=== PATIENT | female | born 1970 | race Caucasian/White ===

== ENCOUNTER 2019-10-31 12:43 | Outpatient (CLI) | payer OTHER, SELFPAY ==
--- NOTE | 2019-10-31 | ECHO_ITS ---
Patient Info Name: Haritha Ríos Age: 49 years : 1970 Gender: Female Ht: 64 in Wt: 218 lbs BSA: 2.16 m2 HR: 87 bpm BP: 116 / 67 mmHg Heart Rhythm: Sinus Rhythm Technical Quality: Good Exam Date: 10/31/2019 1:08 PM Exam Location: [facility] Pulmonary Patient Status: Outpatient Admit Date: 10/31/2019 Staff Ordering Physician: CiprianoFlo MD [employer] Machine Helper: Zafar Avelar RDCS Attending Provider: Paul, lFo Koehler MD Referring Physician: Cipriano VALLE; Exam Type: CA echo doppler color flow Study Info Indications I25.10 - Atherosclerotic heart disease of [place] coronary artery without angina pectoris Complete two-dimensional, color flow and Doppler transthoracic echocardiogram is performed. Strain analysis performed. History/Risk Factors CAD w/ bypass in 2008 and 2014. Summary 1. Left ventricular systolic function is normal, estimated at 55-60%. 2. There is mildly increased left ventricular wall thickness. 3. The left ventricular diastolic function is normal. 4. Global longitudinal strain is mildly elevated at -14 %. 5. Right atrial chamber dimension is mildly enlarged. 6. There is no aortic valve stenosis. 7. There is mild aortic valve regurgitation. 8. There is trace mitral valve regurgitation. 9. There is trace tricuspid valve regurgitation. 10. Unable to estimate PA systolic pressure due to poor spectral resolution of tricuspid regurgitant jet velocity. Left Ventricle Left ventricular chamber dimension is normal. Left ventricular systolic function is normal, estimated at 55-60%. There is mildly increased left ventricular wall thickness. The left ventricular diastolic function is normal. Global longitudinal strain is mildly elevated at -14 %. Right Ventricle Right ventricular chamber dimension is normal. Right ventricular systolic function is normal. Left Atria Left atrial chamber dimension is normal. Right Atria Right atrial chamber dimension is mildly enlarged. Aortic Valve The aortic valve is probable trileaflet. There is no aortic valve stenosis. There is mild aortic valve regurgitation. Pulmonic Valve The pulmonic valve is not well visualized. Mitral Valve The mitral valve has normal leaflets. There is trace mitral valve regurgitation. Tricuspid Valve The tricuspid valve leaflets are normal. There is trace tricuspid valve regurgitation. Unable to estimate PA systolic pressure due to poor spectral resolution of tricuspid regurgitant jet velocity. Pericardium/Pleural The pericardium appears epicardial fat pad. There is no pericardial effusion. Inferior Vena Cava Normal inferior vena cava with >50% collapse upon inspiration consistent with normal right atrial pressure, 5 mmHg. Aorta The aortic root size at the sinus of Valsalva is normal. Left Ventricular Outflow Tract Name Value Normal LVOT 2D LVOT Diameter 1.9 cm LVOT Doppler LVOT Peak Gradient 4 mmHg LVOT Mean Gradient 2 mmHg LVOT VTI 20 cm LVOT VTI/AV VTI Ratio
== END 2019-10-31 12:44 | disposition home or self-care (01) ==
LOC: ANHCARD 12:46
PROVIDERS: Visit Provider Specialist
DX: I25.10 Atherosclerotic heart disease of native coronary artery without angina pectoris (principal); I08.3 Combined rheumatic disorders of mitral, aortic and tricuspid valves
CPT/HCPCS: 93306

== ENCOUNTER 2021-07-06 11:19 | Observation (INO) | payer OTHER, SELFPAY ==
[2021-07-06] VITALS (36 sets, daily range): BP systolic 73–132; BP diastolic 38–76; PULSE 68–103; RESP 14–21; TEMP 35.7–36.7; O2SAT 89–100; BMI 36.8
--- NOTE | ~2021-07-06 | XR_ITS ---
XR chest 2V 07/06/2021 12:17 Indication: Midline chest pain Procedure: AP and lateral views of the chest Comparison: No prior studies for comparison. Findings: Status post median sternotomy for CABG. There is a thoracic aortic stent. Heart size is nor mal. No focal air space disease, pulmonary edema, pleural effusion or suspected pneumothorax. Impression: 1: No acute cardiopulmonary disease. Reviewed, dictated and finalized at location B. Impression: 1: No acute cardiopulmonary disease.
--- NOTE | ~2021-07-06 | XR_ITS ---
EXAMINATION: XR ankle LT min 3V DATE: 07/06/2021 12:18 INDICATION: Last left ankle pain and swelling with abrasion 2 weeks prior TECHNIQUE: Anteroposterior, oblique, mortise, and lateral views of the left ankle were obtained. COMPARISON: None. FINDINGS: Alignment is normal. No fracture. Joint spaces are well maintained. No ankle joint effusion. Mild s oft tissue swelling overlying the cephalad aspect of the lateral malleolus. No cortical erosions or p eriosteal reaction to suggest osteomyelitis. No soft tissue gas or radiopaque foreign bodies. IMPRESSION: 1. No left ankle joint effusion or osseous abnormality. Reviewed, dictated and finalized at location A.
--- NOTE | ~2021-07-06 | CT_ITS ---
EXAMINATION: CTA chest PE protocol DATE: 07/06/2021 16:15 INDICATION: Midline chest pain TECHNIQUE: Computed tomography (CT) pulmonary angiogram of the chest was performed with 100 mL Omnipa que-350 intravenous contrast. Additional 3D reconstructions utilizing coronal maximum intensity proje ction (MIP) were performed. Automated exposure control and iterative reconstruction technique were em ployed. The dose-length product was 800.80 mGy-cm. COMPARISON: None FINDINGS: Excellent contrast opacification of the pulmonary arteries. There is mild streak artifact from dense contrast in the superior vena cava and right atrium. Mild scattered respiratory motion artifact which does not significantly limit evaluation. No pulmonary embolism. Lungs are clear with no pneumonia, p ulmonary edema, pleural effusion or pneumothorax. Heart size is normal. No pericardial effusion. Post operative change of prior median sternotomy and coronary artery bypass grafting. The descending aorta is aneurysmal measuring up to 5.3 cm in maximal diameter at the level of the car fariba. There is intraluminal stenting of an aortic dissection of the descending thoracic aorta with the stent beginning at the aortic arch at level of the takeoff of the left subclavian artery and extendi ng distally to near the thoracic hiatus. The stent distally appears compressed by the false lumen of the dissection which continues distally below the level of the takeoff of the celiac axis which is s upplied via the true lumen. The majority of the cross-sectional diameter of the aorta which measures 3.2 x 3.0 cm at the level of the celiac axis is occupied by the false lumen. The false lumen demonstr ates heterogeneous attenuation which is greater than would be expected for chronic hematoma and sugge sts ongoing endoleak. The attenuation appears higher more caudally at the false lumen then more proxi suzi at the mid descending thoracic aorta suggesting this occurred more distally with retrograde monet ling of the false lumen. There are curvilinear regions of higher attenuation proximally within the fa lse lumen at the level of the proximal descending aorta which appear higher in attenuation than the c ontrast in the aorta suggesting this more likely represents calcification. There appears to be an add itional small dissection at the aortic root proximal to what appears be an additional separate endolu sangeeta stent of the ascending thoracic aorta which terminates before the takeoff of the innominate art konrad. There is an additional dissection flap within the innominate artery which appears to extend into the right common carotid artery. No pathologically enlarged thoracic lymphadenopathy. Diffuse hepati c steatosis. Mild thoracic spondylosis. IMPRESSION: 1. 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 It is unclear to what degree this is acute versus chronic and would recommend urg ent vascular surgery consultation and comparison with any prior outside imaging. 2. Separate short endoluminal stent of the ascending thoracic aorta with aortic dissection proximal t o the stent at the aortic root and more distally in the innominate artery extending into the left com mon carotid artery. 3. No pulmonary embolism or other acute pulmonary disease. Reviewed, dictated and finalized at location A. IMPRESSION: 1. Aneurysmal dilation of the descending thoracic aorta which measures up to 5. 3 cm diameter with endoluminal stent graft extending from the level of the left subclavian artery to t
--- NOTE | 2021-07-06 11:22 | ECG_ITS ---
Measurements Intervals [place] Rate: 102 P: 52 OH: 123 QRS: 8 QRSD: 89 T: 172 QT: 337 QTc: 440 Interpretive Statements SINUS TACHYCARDIA POSSIBLE LEFT ATRIAL ENLARGEMENT EARLY PRECORDIAL R/S TRANSITION LEFT VENTRICULAR HYPERTROPHY WITH ST-T CHANGE INFERIOR INFARCT, AGE INDETERMINATE ST-T WAVE ABNORMALITY IN ANTEROLAT/HIGH LAT LEADS- CONSIDER ISCHEMIA BASELINE ARTIFACT- II, III, AVR, AVF, V3-V6 ABNORMAL ECG Electronically Signed On 07-06-2021 13:08:20 CDT by Vidal Sanchez D.O.
--- NOTE | 2021-07-06 11:53 | ED.CHESTPAIN ---
HPI - Chest Pain General Chief Complaint: Chest Pain Stated Complaint: CP Time Seen by Provider: 07/06/21 11:20 History of Present Illness HPI narrative: Patient is a 51-year-old female who presents ER with left-sided chest pain. Ongoing for the last 1 week. Constant. No radiation. Patient cannot report aggravating or alleviating factors. Reports previously she had been at her boyfriend's house after leaving a senior care. It was a bad 2 weeks or so she just moved back into the senior care. She reports she had a fall on some stairs 2 weeks ago as well prior to going back to the senior care. Did not strike her head or lose consciousness but did suffer an abrasion to her left ankle and has pain in her ankle. She is able to ambulate. Denies fevers or chills or sweats. No runny nose or sore throat or productive cough. No pain with deep breath. No hemoptysis. Patient reports history of coronary disease and sees [facility]. Related Data Home Medications Medication Instructions Recorded Confirmed Adult Multivitamin Extra VitD3 1 tablet PO DAILY 07/06/21 atorvastatin 80 mg PO DAILY 07/06/21 cyclobenzaprine 10 mg PO DAILY 07/06/21 docusate sodium 100 mg PO BID 07/06/21 famotidine 20 mg PO DAILY 07/06/21 fludrocortisone 0.1 mg PO DAILY 07/06/21 furosemide [Lasix] 20 mg PO DIRECTED 07/06/21 isosorbide mononitrate 60 mg PO DAILY 07/06/21 loratadine 10 mg PO DAILY 07/06/21 metoprolol tartrate 6.25 mg PO DAILY 07/06/21 risperidone 0.5 mg PO BID 07/06/21 topiramate 50 mg PO DAILY 07/06/21 trazodone 100 mg PO DAILY 07/06/21 Allergies Allergy/AdvReac Type Severity Reaction Status Date / Time acetaminophen [From Percocet] Allergy Unknown Verified 07/06/21 11:58 morphine Allergy Unknown Verified 07/06/21 11:58 oxycodone [From Percocet] Allergy Unknown Verified 07/06/21 11:58 sumatriptan [From Imitrex] Allergy Unknown Verified 07/06/21 11:59 Review of Systems Review of Systems: All systems reviewed & are unremarkable except as noted in HPI and below Constitutional: Constitutional: Denies chills, Denies fever(s) and Denies weakness ENT: Denies nasal congestion and Denies sore throat Cardiovascular: Cardiovascular: Reports chest pain, Denies rapid heart rate and Denies radiating jaw, neck or arm pain Respiratory: Respiratory: Denies cough, Denies dyspnea and Denies wheezing Gastrointestinal: Gastrointestinal: Denies abdominal pain, Denies nausea and Denies vomiting Musculoskeletal: Musculoskeletal: Reports arthralgias and Reports joint swelling Integumentary/Breasts: Comments: left ankle abasion PMFSH Past Medical History Medical History (Updated 07/06/21 @ 19:17 by Mario Ortiz MD) Aortic dissection History of coronary artery disease Hyperlipidemia Hypertension Surgical History Surgical History (Updated 07/06/21 @ 16:31 by Mario Ortiz MD) 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 HEAD: Normocephalic, atraumatic. EYES: PERRL and EOMI. ENT: Mucous membranes moist. CHEST: Clear to auscultation. No respiratory distress. HEART: Regular rate and rhythm. Normal peripheral pulses. ABDOMEN: Soft, nontender, nondistended. EXTREMITIES: Normal range of motion. No edema. Abrasion tenderness of the left lateral ankle with normal range of motion SKIN: Warm, dry, no rash. NEURO: Alert and oriented x3. Course Course Emergency Course: Accepted for consultation by [facility] and accepted for admission by hospitalist service. Will give Lovenox and start Coumadin. Reevaluation(s) Reevaluation #1: Patient resting comfortably in room. Report
[2021-07-06 11:56] LABS: Basophils Absolute Auto 0.1 K/mm3 (0.0-0.1); Basophils Percent Auto 0.7 % (0.2-1.2); Eosinophils Absolute Auto 0.1 K/mm3 (0-0.3); Eosinophils Percent Auto 1.5 % (0-4.4); Hematocrit 48.8 % (37.0-47.0); Hemoglobin 15.4 g/dL (12.0-15.0); Immature Granulocyte Absolute 0.02 K/mm3 (0.00-0.031); Immature Granulocyte Percent A 0.2 % (0-0.5); Lymphocytes Absolute Auto 2.57 K/mm3 (0.9-3.2); Lymphocytes Percent Auto 29.7 % (18.3-44.2); Mean Corpuscular HGB Conc 31.6 g/dl (32-36); Mean Corpuscular Hemoglobin 28.6 pg (26-34); Mean Corpuscular Volume 90.7 fl (80-100); Mean Platelet Volume 10.4 fl (7.4-10.4); Monocytes Absolute Auto 0.8 K/mm3 (0.1-0.6); Monocytes Percent Auto 8.7 % (2.6-8.5); Neutrophils Absolute Auto 5.1 K/mm3 (1.3-6.7); Neutrophils Percent Auto 59.2 % (45.5-73.1); Platelet Count Result 239 k/mm3 (150-375); Red Blood Count 5.38 M/mm3 (4.2-5.4); Red Cell Distribution Width 16.9 % (11.5-14.5); White Blood Count 8.6 K/mm3 (4.5-10.0)
[2021-07-06 12:04] LABS: Anion Gap 12 mmol/L (8-16); Blood Urea Nitrogen 8 mg/dL (7-17); Calcium 9.7 mg/dL (8.4-10.2); Carbon Dioxide 22 mmol/L (22-30); Chloride 107 mmol/L (98-107); Estimated CRCL calculation 106 ml/min; Estimated Glomerular Filt Rate > 60; Glucose 123 mg/dL (65-110); Potassium 3.8 mmol/L (3.4-5.0); Sodium 141 mmol/L (137-145)
[2021-07-06 12:05] LABS: INR 0.9; Prothrombin Time 12.2 Seconds (11.1-14.7)
[2021-07-06 12:06] LABS: Partial Thromboplastin Time 24.5 SECONDS (22.3-36.8)
[2021-07-06 12:16] LABS: Troponin I 0.015 ng/mL (0.000-0.034)
[2021-07-06] MEDS: fentaNYL CITRATE INJ (*CRX) 100 MCG/2 ML VIAL 50 MCG IV PUSH (12:24)
[2021-07-06] MEDS: Please add drug allergy info to patient profile. 1 EACH XX (12:24)
[2021-07-06] MEDS: SODIUM CHLORIDE 0.9% IV 1,000 ML 999 ML IV CONT (13:08)
[2021-07-06 15:27] LABS: Troponin I 0.013 ng/mL (0.000-0.034)
[2021-07-06 18:03] LABS: Troponin I < 0.012 ng/mL (0.000-0.034)
[2021-07-06] MEDS: ENOXAPARIN 100 MG/ML SYRINGE 95 MG SUB-Q (18:21)
[2021-07-07] VITALS (8 sets, daily range): BP systolic 116–139; BP diastolic 56–72; PULSE 88–109; RESP 16–20; TEMP 36.4–36.8; O2SAT 94–100
--- NOTE | 2021-07-07 01:39 | PM.IMHP ---
H&P: HPI History of Present Illness Date/Time: 07/07/21 01:39 Chief Complaint: Chest pain Narrative: Patient is a 51-year-old female who presents to the ER with left-sided chest pain. This has been ongoing for the past few weeks. The pain has been constant. No radiation no aggravating or alleviating factors. Patient resides in a retirement. Patient reports shortness of breath on and off along with the chest pain. She denies any fever chills cough runny nose or sore throat. No hemoptysis he is she reports he has a history of extensive coronary artery disease and had bypass and stents in the past. 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 Her initial workup in the ER noted to be with negative troponin and unremarkable CBC and a BMP. Chest x-ray showed no acute cardiopulmonary disease. Chest CTA was done which showed Aneurysmal dilation of the descending thoracic aorta which measures up to 5.3 cm diameter with endoluminal stent graft extending from the level of the left subclavian artery to the descending thoracic aorta where it appears compressed by an aortic dissection with enlarged lying likely retrograde filling false lumen it is unclear to what degree this is acute versus chronic and would recommend urgent vascular surgery consultation and comparison with any prior outside imaging. Separate short endoluminal stent of the ascending thoracic aorta with aortic dissection proximal to the stent at the aortic root and more distally in the innominate artery extending into the left common at carotid artery. No pulmonary embolism or other acute pulmonary disease. EKG showed some ST-T changes in the dieter lateral leads. No prior EKG to compare. ED physician spoke with vascular surgeon at [facility] and reviewed the images. He reported that patient has a chronic aortic dissection that is stable from the previous imaging. He reported that she will always have retrograde filling defect however he recommended that she be anticoagulated with Coumadin given prior pre-existing coronary artery disease as well. It was felt patient did require transfer or any bit other intervention in a tertiary care center for the findings noted above. She has been given a dose of Lovenox as well as 324 mg of aspirin She currently reports that she does not have any chest pain and denies any shortness of breath. Review of Systems Review of Systems: - CONSTITUTIONAL: Denies weight loss, fever and chills. - HEENT: Denies changes in vision and hearing - RESPIRATORY: Reports SOB and denies cough. - CV: Denies palpitations and reports CP. - GI: Denies abdominal pain, nausea, vomiting and diarrhea. - : Denies dysuria and urinary frequency. - MSK: Denies myalgia and joint pain. - SKIN: Denies rash and pruritus. - NEUROLOGICAL: Denies headache and syncope. - PSYCHIATRIC: Denies recent changes in mood. Denies anxiety and depression. 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
--- NOTE | 2021-07-07 09:36 | PM.CNCAR ---
Assessment and Plan Additional Plan 51-year-old woman with chest pain prompting admission to the hospital last evening. Symptoms are atypical of and not suggestive of acute coronary syndrome. She has the above-mentioned history of coronary disease. She states the symptoms do not resemble her previous myocardial ischemia which she has not been experiencing since her bypass operation about 11 years ago. There is no evidence of acute coronary syndrome by troponin levels. ECG shows some diffuse nonspecific ST segment changes. We have no old EKGs and [facility]'s record for comparison. In addition to this she has unfortunately a history of a aortic dissection as well which was treated with thoracic aortic stenting at [facility]. She has extensive stent material visualized on x-ray and CT here at [facility]. Apparently the CT showed a small endoleak and some aneurysmal enlargement of the descending thoracic aorta distal to the stent material. Fortunately these images were reviewed remotely by the thoracic surgeons at [facility] last evening and the findings are stable. Since her symptoms are atypical, not suggestive of ischemia and her biomarkers are negative in the face of a week of ongoing pain I do not think we need to initiate an ischemia workup here at [facility]. We certainly would not consider bringing this patient for catheterization at [facility] given the extensive stenting of her thoracic aorta and previous bypass operations we have no records of any of this anatomy and this type of procedure would be beyond the scope of the capability of this hospital's medical lab scientist. I believe she can be [facility]. Follow-up with cardiology and thoracic surgery is chronically being performed at [facility]. Pratik Berry MD [facility] History of Present Illness History of Present Illness Consult date/time: 07/07/21 09:36 Consult reason: chest pain Reason For Visit: Chest pain Narrative: This is a 51-year-old lady I am seeing at the request of the hospitalist because of chest pain. The patient unfortunately has a very complex cardiovascular history and none of her previous care was delivered here at [facility]. Sadly she is a penitentiary resident at 51 years old because she says she has nowhere else to go. She usually is feeling relatively well as far as her heart is concerned. She said a couple of weeks ago she tried to leave the penitentiary and live with her boyfriend for a couple of weeks but that did not work out she was concerned that she was not receiving her medications appropriately while she was there so she went back to the [facility]itent[facility]. She says about a week ago she started to experience some chest pain that she describes she describes as a dull left precordial pain that was constant it really did not wax and wane had no other characteristics or quality did not radiate to any other location not associated with any shortness of breath diaphoresis and simply a nagging ongoing pain. For this reason apparently yesterday the decision was made by the [facility]entiary staff to send her to the hospital emergency room. She was evaluated in the emergency room and admitted Jose M. The pain has resolved she can not really tell me if she received any analgesics in the emergency room or for what reason but pain has completely resolved and she feels well this morning. Her electrocardiogram shows sinus rhythm with some nonspecific ST segment changes and her troponin levels are negative x3 sets. She has a history of coronary disease dating back to her late 30s she states when she was in her late 30s she had several hospitalizations in [facility] with chest pain and eventually was determined that she needed coronary bypass surgery. We again of course do not have any of those records at the time I dictate this note. She underwent coronary bypass surgery and did relatively well. She does not believe she has had any cardiac problems since her co
[2021-07-07] MEDS: ASPIRIN 81 MG ENTERIC TABLET PO (10:28)
[2021-07-07] MEDS: ISOSORBIDE MONONITRATE 60 MG TAB.ER.24H PO (10:28)
[2021-07-07] MEDS: FLUDROCORTISONE ACETATE 0.1 MG TABLET PO (10:28)
[2021-07-07] MEDS: CYANOCOBALAMIN 1,000 MCG TABLET 1000 MCG PO (10:29)
[2021-07-07] MEDS: risperiDONE 0.5 MG TABLET PO (10:29)
[2021-07-07] MEDS: TOPIRAMATE 25 MG TABLET 50 MG PO (10:29)
[2021-07-07] MEDS: CYCLOBENZAPRINE HCL 10 MG TABLET PO (10:29)
[2021-07-07] MEDS: MULTIVITAMINS THERAPEUTIC TAB (*BKC) 1 TABLET PO (10:29)
[2021-07-07] MEDS: POTASSIUM CHLORIDE 20 MEQ TABLET.ER PO (10:29)
[2021-07-07] MEDS: LORATADINE 10 MG TABLET PO (10:29)
[2021-07-07] MEDS: ATORVASTATIN 40 MG TABLET 80 MG PO (10:29)
[2021-07-07] MEDS: ENOXAPARIN 100 MG/ML SYRINGE 95 MG SUB-Q (10:29)
[2021-07-07] MEDS: FAMOTIDINE 20 MG TABLET PO (10:29)
[2021-07-07] MEDS: METOPROLOL TARTRATE 6.25 MG TABLET PO (10:30)
--- NOTE | 2021-07-07 10:47 | PM.DS ---
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: Code(s): Z98.890 - Other specified postprocedural states; Z86.79 - Personal history of other diseases of the circulatory system Status: Inactive (4) History of coronary artery bypass graft: Code(s): Z95.1 - Presence of aortocoronary bypass graft Status: Inactive (5) History of percutaneous coronary intervention: Code(s): Z98.61 - Coronary angioplasty status Status: Inactive (6) Hypertension: Code(s): I10 - Essential (primary) hypertension Status: Inactive (7) Hyperlipidemia: Code(s): E78.5 - Hyperlipidemia, unspecified Status: Inactive DS: Summary Hospital Course Reason for hospitalization: 51yo female with hx of CAD and aortic dissection repair here for chest pain. Please see H&P for details. Hospital Course: Patient states the chest pain has been going on for the past few weeks. Pain is constant and lasted about 8-9 hours prior to this admission. The pain occurred while at sleep and did wake her up. She denied any nausea, diaphoresis or shortness of breath. There was no radiation to the pain. She described it as sharp and substernal. She related that the chest pain increased when she lays on her side. Because of the chest pain, patient was sent to emergency room for evaluation. In the emergency room, patient had EKG which showed ST T wave changes in anterior lateral leads. No old EKG to compare. Chest x-ray was clear. Troponins were negative x3. She had a CTA of the chest showing no pulmonary embolism but did show aneurysmal dilation of the descending thoracic aorta which measures up to 5.3 cm diameter with endoluminal stent graft extending from the level of the left subclavian artery to the descending thoracic aorta where it appears compressed by an aortic dissection with enlarged likely retrograde filling false lumen. Also noted was a separate short endoluminal stent of the ascending thoracic aorta with aortic dissection proximal to the stent at the aortic root and more distally in the innominate artery extending into the left common at carotid artery. The ED physician spoke with vascular surgeon at [facility] who reviewed the images. He reported that patient has a chronic aortic dissection that is stable from the previous imaging. He reported that she will always have retrograde filling defect however he recommended that she be anticoagulated with Coumadin given prior pre-existing coronary artery disease as well. She was started on Lovenox and Coumadin. We did get an old office note from Dr Corrigan from March 2021 who recommended that she remain on Coumadin (the dose listed in the note was Coumadin 6mg daily). Cardiology here evaluate the patient but did not feel any further evaluation or treatment was necessary. Will continue Coumadin at discharge as recommended by [facility] vascular surgery. Daily INR with results to the facility doctor and Dr. Corrigan. Patient did well and was [facility]. Status at Discharge Cognitive/behavioral status at discharge: stable Time Spent with Patient Time attestation: Total time spent providing and/or coordinating discharge services:38 minutes Time spent: Greater than 30 minutes Exam Narrative: AF 98.1 116/64 96 16 94% ra Gen - NARD Chest - CTA bilaterally, nml RR CV - RRR S1/S2 wit 2/6 systolic murmur heard t/o the precordium. Tele showing no significant dysrhythmias Abd - Soft, NT/ND, Positive BS Ext - No pedal edema Psych - Nml mood and affect Skin - Warm and dry DS: Data Data Comp
== END 2021-07-07 14:30 ==
LOC: ANHED 19:17 → ANHIMU 23:44
PROVIDERS: Admitting Provider Family Medicine; Emergency Provider Emergency Medicine; Visit Provider Internal Medicine
DX: R07.9 Chest pain, unspecified (principal); I71.01 Dissection of thoracic aorta; R06.02 Shortness of breath; I25.10 Atherosclerotic heart disease of native coronary artery without angina pectoris; I10 Essential (primary) hypertension; E78.5 Hyperlipidemia, unspecified; F17.210 Nicotine dependence, cigarettes, uncomplicated; Z95.1 Presence of aortocoronary bypass graft; Z95.5 Presence of coronary angioplasty implant and graft
CPT/HCPCS: 36415; 71046; 71275; 73610; 80048; 84484; 85025; 85610; 85730; 93005; 96361; 96372; 96374; 99285; A9270; G0378; G0379; J1650; J3010; J7030; Q9967

== ENCOUNTER 2023-10-26 09:20 | Outpatient (CLI) | payer OTHER, SELFPAY ==
--- NOTE | 2023-10-26 | ECHO_ITS ---
Patient Info Name: Haritha Ríos Age: 53 years : 1970 Gender: Female Ht: 64 in Wt: 210 lbs BSA: 2.12 m2 HR: 59 bpm BP: 106 / 72 mmHg Heart Rhythm: Sinus Rhythm, Bradycardia Technical Quality: Fair Exam Date: 10/26/2023 10:01 AM Exam Location: Echo Lab Patient Status: Outpatient Admit Date: 10/26/2023 Staff Ordering Physician: MARY ANN, ARIADNE Hospital Unit Coordinator: Attending Provider: MARY ANN, ARIADNE Exam Type: CA echo doppler color flow Study Info Indications I35.1 - Nonrheumatic aortic (valve) insufficiency Complete two-dimensional, color flow and Doppler transthoracic echocardiogram is performed. Summary 1. Complete two-dimensional, color flow and Doppler transthoracic echocardiogram is performed. 2. Left ventricular chamber dimension is normal. 3. Left ventricular systolic function is normal, estimated at 60-65%. 4. There is mildly increased left ventricular wall thickness. 5. The left ventricular diastolic function is grade II diastolic dysfunction. 6. Right ventricular chamber dimension is normal. 7. Right ventricular systolic function appears to be mildly reduced. 8. Left atrial chamber dimension is mildly enlarged. 9. There is mild aortic valve regurgitation. Left Ventricle Left ventricular chamber dimension is normal. Left ventricular systolic function is normal, estimated at 60-65%. There is mildly increased left ventricular wall thickness. The left ventricular diastolic function is grade II diastolic dysfunction. Right Ventricle Right ventricular chamber dimension is normal. Right ventricular systolic function appears to be mildly reduced. Left Atria Left atrial chamber dimension is mildly enlarged. Right Atria Right atrial chamber dimension is normal. Atrial Septum Intact interatrial septum visualized by color flow imaging. Aortic Valve The aortic valve is not well visualized. There is no aortic valve stenosis. There is mild aortic valve regurgitation. Pulmonic Valve The pulmonic valve is not well visualized. Mitral Valve There is trace mitral valve regurgitation. Tricuspid Valve There is trace tricuspid valve regurgitation. Pericardium/Pleural There is no pericardial effusion. Inferior Vena Cava Normal inferior vena cava with >50% collapse upon inspiration consistent with normal right atrial pressure, 3 mmHg. Aorta The aortic root size at the sinus of Valsalva is normal. Left Ventricular Outflow Tract Name Value Normal LVOT 2D LVOT Diameter 2.0 cm LVOT Doppler LVOT Peak Gradient 5 mmHg LVOT Mean Gradient 3 mmHg LVOT VTI 30 cm LVOT VTI/AV VTI Ratio 0.7 LVOT Stroke Volume 99 ml LVOT CO 5.4 l/min LVOT CI 2.6 l/min/m2 Pulmonic Valve Name Value Normal PV Doppler PV Peak Gradient
== END 2023-10-26 09:21 | disposition home or self-care (01) ==
LOC: ANHCARD 09:24
PROVIDERS: PCP Pediatrics Neonatal-Perinatal Medicine
DX: R93.1 Abnormal findings on diagnostic imaging of heart and coronary circulation (principal); I51.7 Cardiomegaly; I35.1 Nonrheumatic aortic (valve) insufficiency; I50.32 Chronic diastolic (congestive) heart failure
CPT/HCPCS: 93306

== ENCOUNTER 2025-01-27 08:29 | Outpatient (CLI) | payer OTHER, SELFPAY ==
--- NOTE | ~2025-01-27 | CT_ITS ---
CT of the Abdomen and Pelvis: Indication: Abdominal pain Technique: 2.5 mm axial scans were obtained through the abdomen and pelvis following intravenous adm inistration of 100 cc of Omnipaque 350. Dose reduction technique was used on this scan by utilizing a utomated exposure control and iterative reconstruction technique. The dose-length product (DLP) was 5 62.68 mGy-cm. Findings: Visualized lung bases are clear. The liver, spleen, pancreas, adrenals and right kidney are within normal limits. Nonobstructing centr al stones are present in the left kidney, largest measuring 13 mm.. No lymphadenopathy. There is aort ic aneurysm and dissection of the visualized descending thoracic aorta with distal portion of a thora cic aortic stent graft in place. Dissection extends through the abdominal aorta to the level of the a ortic bifurcation. Atherosclerotic calcifications aorta are also present diffusely. No bowel obstruction or bowel wall thickening. There is no evidence to suggest acute appendicitis. Images through the pelvis were performed. Urinary bladder unremarkable. No pelvic mass seen. No ascit es. 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 Nonobstructing left renal stones, as above. Reviewed, dictated and finalized at location M. 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 Nonobstructing left renal stones, as above.
--- OUTSIDE RECORDS SUMMARY | 2025-01-27 08:38 | XMS_ITS | Encounter Summary ---
Author Organization [facility] Address [address] [place] [address] Phone Care Team Providers Care Change Room Attendant Name Role Phone Unavailable Primary Care Provider Unavailabl e Encounter Details Date Type Department Care Team (Late st Contact Info) Description 01/03/2025 Lab 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 Gender Identity Not on file Sexual Orientation Not on file documented as of this encounter Plan of Treatment Not on file documented as of this encounter Procedures Procedure Name Priority Date/Time Associated Diagnosis Comments PROTIME (PT) (PROTHROMBIN TIME) Routine 01/03/2025 7:30 PM CDT documented in this encounter Results * (ABNORMAL) PROTIME (PT) (PROTHROMBIN TIME) (01/03/2025 7:30 PM CDT) PROTIME-PATIENT 18.1(H) 11.6 - 14.8 sec 01/03/2025 7:57 PM CDT [facility] INR 1.5(H) 0.9 - 1.2 01/03/2025 7:57 PM CDT [facility] Comment: Therapeutic Ranges INR = 2.0-3.0: Venous thromb, atrial fib, pul embolism, tissue heart valve, ami. INR = 2.5-3.5: Mechanical heart valve Critical value for INR is >/= 4.5 Blood No Phlebotomy Charged / Unknown 01/03/2025 7:30 PM CDT 01/03/2025 7:30 PM CDT us Cem Romero MD HEMATOLOGY ORDERABLES Final Resu lt [facility] [address] [place] [address] documented in this encounter Visit Diagnoses Not on filedocumented in this encounter
--- OUTSIDE RECORDS SUMMARY | 2025-01-27 08:38 | XMS_ITS | Encounter Summary ---
Author Organization [facility] Address [address] [place] [address] Care Team Providers Care Retail Warehouse Associate Name Role Phone Tameka Clark MD Primary Care Provider [phone] Flo Cota MD Unavailable [phone] None, Provider MD Primary Care Provider Unavaila ble Encounter Details Date Type Department Care Team (Late st Contact Info) Description 12/21/2017 Abstract [facility] at [facility], [address] [address] Alok Vincent MA Social History Tobacco Use Types Packs/Day Years Used Date Smoking Tobacco: Some Days Cigarettes 0.5 30 Smokeless Tobacco: Never Alcohol Use Standard Drinks/Week Comments No 0 (1 standard drink = 0.6 oz pur e alcohol) Comments Unknown Sex and Gender Information Value Date Recorded Sex Assigned at Not on file Legal Sex Female 9:09 PM CDT Gender Identity Not on file Sexual Orientation Not on file Occupation Industry Job Start Date Job End Date Not on file Not on file Not on file Not on file documented as of this encounter Plan of Treatment Not on file documented as of this encounter Procedures Procedure Name Priority Date/Time Associated Diagnosis Comments BASIC METABOLIC PANEL Routine 12/12/2017 LIPID PANEL Routine 12/12/2017 PROTIME (OUTSIDE LAB) Routine 11/13/2017 documented in this encounter Results * (ABNORMAL) BASIC METABOLIC PANEL (12/12/2017) SODIUM S/P/B 143 POTASSIUM S/P/B 3.9 CO2 24.1 CHLORIDE S/P/B 110 GLUCOSE 109 mg/dL CALCIUM S/P/B 8.7 BUN 14 CREATININE S/P/B 0.7 0.5 - 1.0 EGFR AFR. AMER. 109(A) <=90 EGFR NON-AFR. AMER. 90 <=90 12/12/2017 us Doc [facility] LABORATORY Final Result * LIPID PANEL (12/12/2017) CHOLESTEROL 161 HDL 37.8 TRIGLYCERIDES 204 NON HDL CHOLESTEROL 123.2 LDL (CALCULATED) 82 12/12/2017 us Doc [facility] LABORATORY Final Result * PROTIME (OUTSIDE LAB) (11/13/2017) PROTIME 32.1 INR 2.8 11/13/2017 us Doc [facility] Abstract LAB-OUTSIDE/ABSTRACTED Final Result documented in this encounter Visit Diagnoses Not on filedocumented in this encounter Care Teams Retail Warehouse Associate Relationship Specialty Start Date End Date Tameka Clark MD PCP - General INTERNAL MEDICINE 08/30/16 04/23/19 Yony Adkins MD PCP - General 04/24/19 Flo Cota MD [facility] [address] [place] [address] Cathie Technical Specialist Cytology CARDIOVASCULAR DISEASE 08/23/17 documented as of this encounter
--- OUTSIDE RECORDS SUMMARY | 2025-01-27 08:38 | XMS_ITS | Clinical Summary ---
Author Organization [facility] Address [address] [place] [address] Care Team Providers Care Warehouse Worker Name Role Phone Tameka Clark MD Primary Care Provider [phone] Allergies Active Allergy Reactions Criticality Noted Date Comments Morphine Vomiting,Headache Low Oxycodone-Acetaminophen Other (See comments) Low Jitters, light headed Sumatriptan Other (See comments) Low Jitters, light headed Medications risperiDONE (RisperDAL) 0.5 mg tablet Take 0.5 mg by mouth 2 (two) times a day Active aspirin 81 mg tablet Take by mouth daily Active cyclobenzaprine (FLEXERIL) 10 mg tablet Take 10 mg by mouth daily Active multivitamin capsuleIndicatio ns:Vitamin Deficiency Prevention Take 1 capsule by mouth daily Active venlafaxine (EFFEXOR) 75 mg tablet Take 75 mg by mouth 2 (two) times a day Active atorvastatin (LIPITOR) 40 mg tabletIndication s:hyperlipidemia Take 80 mg by mouth daily Active metoprolol (LOPRESSOR) 25 mg tabletIndication s:hypertension Take 6.25 mg by mouth daily Active ranitidine (ZANTAC) 150 mg capsule Active furosemide (LASIX) 20 mg tablet Take 20 mg by mouth every other day Active topiramate (TOPAMAX) 25 mg tablet Take 50 mg by mouth nightly Active polyethylene glycol (MIRALAX) 17 gram/dose powder Take 17 g by mouth daily as needed Active nitroglycerin (NITROSTAT) 0.[address] 0.4 mg under the tongue as needed for chest pain 0 8 Active cyanocobalamin (Vitamin B-12) 500 mcg tabletIndication s:Prevention of Vitamin B12 Deficiency Take 500 mcg by mouth daily Active fludrocortisone 0.1 mg tablet Take 0.1 mg by mouth daily Active isosorbide mononitrate ER (IMDUR) 60 mg 24 hr tablet Take 60 mg by mouth daily. Active acetaminophen (TYLENOL) 325 mg tablet Take 650 mg by mouth every 6 (six) hours as needed for pain. Active potassium chloride ER (KLOR-CON) 20 mEq CR tablet Take 20 mEq by mouth every other day Active traZODone (DESYREL) 150 mg tabletIndication s:major depressive disorder Take 100 mg by mouth nightly Active nicotine polacrilex (NICORETTE) 2 mg gum Chew 2 mg as needed for smoking cessation Active benzonatate (TESSALON) 100 mg capsuleIndicatio ns:Cough Take 100 mg by mouth 3 (three) times a day as needed for cough Active GUAIFENESIN ORAL Take 1 Dose by mouth as needed Active phytonadione (VITAMIN K1) 5 mg tablet Take 5 mg by mouth as needed (bleeding) Active hydrocortisone 0.5 % cream Apply 1 application topically as needed Active loratadine (CLARITIN) 10 mg tablet Take 10 mg by mouth daily Active cholecalciferol (VITAMIN D-3) 74262 unit tablet Take 50,000 Units by mouth once a week Active famotidine (PEPCID) 20 mg tablet Take 20 mg by mouth daily Active warfarin (COUMADIN) 6 mg tabletIndication s:atrial fibrillation Take 1 tablet (6 mg total) by mouth daily 30 tablet 1 Active Additional Information Patient taking differently: 3 mgoral Daily, Indications: atrial fibrillation, Reported on 06/27/2022 traMADoL (ULTRAM) 50 mg tablet 0 1 Active Active Problems Problem Noted Date Diagnosed Date Nonrheumatic aortic (valve) insufficiency 2021 Left ventricular thrombus 06/27/2022 Coronary artery disease of n ative artery of [place] heart with stable angina pectoris 06/27/2022 Tobacco abuse 06/27/2022 Essential hypertension, benign 06/27/2022 Mixed hyperlipidemia 06/27/2022 S/P ascending aortic aneurysm repair 06/27/2022 DVT (deep venous thrombosis) 02/28/2021 Assessment & Plan (03/01/2021 6:04 AM CDT): 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 Repeat TEVAR done 02/23. - lumbar drain out 02/25 - SBP >100 - q4h NV checks, allow patient to sleep at night - ContinueASA, Statin - Groin duplex 02/27 negative for pseudoaneurysm Surgical History Surgery Date Site/Laterality Comments THORACIC ENDOVASCULAR AORTIC REPAIR 04/12/2016 OTHER SURGICAL HISTORY 03/08/2017 mediastinal washout and chest closure VASCULAR SURGERY 03/07/2017 aortic arch replacement with prothesis, redo sternotomy, dissection of axillary artery for axillary artery cannulation,etc VASCULAR SURGERY 03/03/2017 left carotid subclavian artery bypass CARDIAC SURGERY 09/18/2008 - 09/17/2009 CABG 6 vessels CARDIAC STENT PLACEMENT 09/18/2008 - 09/17/2009 CARDIAC CATHETERIZATION 09/18/2016 - 09/17/2017 OTHER SURGICAL HISTORY 09/18/2014 - 09/17/2015 mediastinal exploration AORTIC ANEURYSM REPAIR 09/18/2014 - 09/17/2015 replacement of ascending aorta, aortic valve resuspension and button anastomosis of 2 prior vein grafts, c/b cardiac tamponade HYSTERECTOMY Medical History Medical History Date Comments CHF (congestive heart failure) (HCC) Aortic dissection (HCC) Myocardial infarction (HCC) HTN (hypertension) CAD (coronary artery disease) Thoracic aortic aneurysm (TAA) Obesity Family History Medical History Relation Name Comments Diabetes Father Family history of diabetes mellitus - (Added by TW Conv) Heart attack Father Family history of myocardial infarction - (Added by TW Conv) Diabetes Mother Family history of diabetes mellitus - (Added by TW Conv) Anesthesia problems Neg Hx Relation Name Status Comments Father Mother Social History Tobacco Use Types Packs/Day Years Used Date Smoking Tobacco: Every Day Cigarettes 0.5 20 Smokeless Tobacco: Never Tobacco Cessation:Ready to Q uit: Yes; Counseling Given: Yes Alcohol Use Standard Drinks/Week Comments No 0 (1 standard drink = 0.6 oz pur e alcohol) AUDIT-C Answer Date Recorded Q1: How often do you have a drink containing alc ohol? Never 02/23/2021 Average Number of Drinks Not on file 021 Q3: How often do you have si x or more drinks on one occasion? Never 02/23/2021 Comments No Sex and Gender Information Value Date Recorded Sex Assigned at Not on file Legal Sex Female 12:29 PM CDT Gender Identity Not on file Sexual Orientation Not on file Obstetrics History Last Filed Vital Signs Vital Sign Reading Time Taken Comments Blood Pressure 108/60 08/25/2022 1:30 PM SENIOR CLINICIAN Pulse 65 08/25/2022 1:30 PM SENIOR CLINICIAN Temperature 36.2 C (97.2 F) 10/06/2021 8:00 AM SENIOR CLINICIAN Respiratory Rate 16 03/01/2021 11:45 AM CDT Oxygen Saturation 94% 06/27/2022 3:39 PM CDT Inhaled Oxygen Concentration - - Weight 87.1 kg (192 lb) 08/25/2022 1:30 PM SENIOR CLINICIAN Height 162.6 cm (5' 4 ) 08/25/2022 1:30 PM SENIOR CLINICIAN Body Mass Index 32.96 08/25/2022 1:30 PM SENIOR CLINICIAN Plan of Treatment Health Maintenance Due Date Last Done Comments Breast Cancer Screening-Mammogram 1970 Colon Cancer Screening-Colonoscopy 1970 Depression Screening 1970 Hepatitis C Screening 1970 Hepatitis B Screening 1989 Regular Well Visit/Exam 18-64 1989 Pneumococcal vaccine <65 (2 of 2 - PCV) 04/10/2016 04/10/2015, 11/14/2014 DTaP/Tdap/Td Vaccine (2 - Td or Tdap) 06/30/2020 06/30/2010 Zoster Vaccine (1 of 2) 2021 Covid-19 Vaccine (2 - 2023-2 5 season) 2024 07/23/2021 Influenza Vaccine (#1) 2024 7, 07/28/2015, 11/14/2014, Additional history exists Medical Devices Implanted Type Area Mechanical Meter Tester Device Identifier Shelf Expiration Date Model / Serial / Lot [employer] [id number] Zenith Alpha Flexor Captor 28mm 24-25mm 16fr 109mm 2 Piece - [id number] Implanted:Qty: 1 on 02/23/2021 by Quang Corrigan MD PhD at [facility] Endoprosthesis Aorta [employer] 11/23/2021 [id number] / / [id number] [employer] [id number] Zenith 36mm 20-30mm 16mm 180mm 9 Dissection Introducer Sheath - [id number] Implanted:Qty: 1 on 02/23/2021 by Quang Corrigan MD PhD at [facility] Stent Aorta [employer] 11/04/2023 [id number] / / [id number] Insurance [facility] Advance Directives For more information, please contact: [phone] * Full Code (Latest Code Status on File) Date Activated Date Inactivated Comments 02/23/2021 5:22 PM 03/01/2021 9:14 PM Care Teams Warehouse Worker Relationship Specialty [place] [address] [place] [id number] PCP - General 03/19/17
--- OUTSIDE RECORDS SUMMARY | 2025-01-27 08:38 | XMS_ITS | Encounter Summary ---
Author Organization [facility] Address [address] [place] [address] Phone Care Team Providers Care Reading Intervention Teacher Name Role Phone Tameka Clark MD Primary Care Provider [phone]- [phone] Encounter Details Date Type Department Care Team (Latest Contact Info) Description 03/14/2017 Orders Only [facility] CONVERSION Scanning, Provider Social History Tobacco Use Types Packs/Day Years [...] Procedure Name Priority Date/Time Associated Diagnosis Comments VASCULAR LABORATORY REPORT 03/14/2017 5:12 PM CDT documented in this encounter Results * VASCULAR LABORATORY REPORT (03/14/2017 5:12 PM CDT) Anatomical Region Laterality Modality Ultrasound us Provider Scanning CV VASCULAR PROCEDURES Final R esult documented in this encounter Visit Diagnoses Not on filedocumented in this encounter Additional Health Concerns Infection Onset Date Last Indicated Resolved Time COVID: Suspected 02/19/2021 02/19/2021 02/19/2021 9:38 PM CDT 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 Pt transferring off 8200 and will need to be on Contact precautions while surveillance testing is underway 02/28/2021 02/28/2021 021 12:15 PM CDT Exposure, Contact Comment:03/10/2021 IP Review - Pt's surveillance cultures from axilla and groin are negative. 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 Pt transferring off 8200 and will need to be on Contact precautions while surveillance testing is underway 02/28/2021 02/28/2021 03/10/2021 12:16 PM CDT documented as of this encounter Care Teams Reading Intervention Teacher Relationship Specialty Start Date End Date Tameka Clark MD [address] [address] PCP - General 03/19/17 documented as of this encounter
--- OUTSIDE RECORDS SUMMARY | 2025-01-27 08:38 | XMS_ITS | Encounter Summary ---
Author Organization [facility] Address [address] [place] [address] Phone Care Team Providers Care Corporate Services Manager Name Role Phone Tameka Clark MD Primary Care Provider [phone]- [phone] Encounter Details Date Type Department Care Team (Latest Contact Info) Description 03/20/2017 Orders Only [facility] CONVERSION Scanning, Provider Social [...] Date/Time Associated Diagnosis Comments VASCULAR LABORATORY REPORT 04/18/2017 10:46 AM CDT VASCULAR LABORATORY REPORT 04/18/2017 10:46 AM CDT VASCULAR LABORATORY REPORT 03/20/2017 10:34 PM CDT documented in this encounter Results * VASCULAR LABORATORY REPORT (04/18/2017 10:46 AM CDT) Anatomical Region Laterality Modality Ultrasound us Provider Scanning CV VASCULAR PROCEDURES Final R esult * VASCULAR LABORATORY REPORT (04/18/2017 10:46 AM CDT) Anatomical Region Laterality Modality Ultrasound us Provider Scanning CV VASCULAR PROCEDURES Final R esult * VASCULAR LABORATORY REPORT (03/20/2017 10:34 PM CDT) Anatomical Region Laterality Modality Ultrasound [...] documented as of this encounter Care Teams Corporate Services Manager Relationship Specialty Start Date End Date Tameak Clark MD [address] [facility] [address] [place] [address] PCP - General 03/19/17 documented as of this encounter
--- OUTSIDE RECORDS SUMMARY | 2025-01-27 08:38 | XMS_ITS | Clinical Summary ---
Author Organization [facility] Address [address] [place] [address] Care Team Providers Care Transition Advisor Name Role Phone Flo Cota MD Unavailable [phone] None, Provider MD Primary Care Provider Unavaila ble Allergies Active Allergy Reactions Criticality Noted Date Comments Atorvastatin Other (see comment) 08/24/2016 Bruising Morphine Headache,Vomiting 08/24/2016 sweating Oxycodone-Acetaminophen Other (see comment) Low 03/2016 Sweating, palpitations Jitters, light headed Ropinirole Unknown 07/04/2010 Sumatriptan Other (see comment) Low 08/24/2016 Sweating, palpitations Jitters, light headed Medications DAILY MULTIPLE VITAMINS Tab Take 1 tablet by mouth daily. 5 Active fludrocortisone 0.1 MG tablet Take 1 tablet by mouth daily. 0 Active cyclobenzaprine 10 MG tablet Take 1 tablet by mouth nightly at bedtime. 2 6 Active Vitamin D, Ergocalciferol, 02712 UNITS capsule Take 50,000 Units by mouth twice a week. Active metoprolol tartrate 25 MG tablet Take 0.25 tablets (6.25 mg total) by mouth 2 (two) times daily. 7 Active venlafaxine 24 hr 75 MG 24 hr capsule Take 1 capsule (75 mg total) by mouth nightly. 7 Active vitamin B-12 500 MCG tablet Take 1 tablet (500 mcg total) by mouth daily. 7 Active ranitidine 150 MG capsule Take 1 capsule (150 mg total) by mouth 2 (two) times daily. 7 Active lisinopril 5 MG tablet Take 1 tablet (5 mg total) by mouth daily. 7 Active polyethylene glycol packet Take 1 packet (17 g total) by mouth daily. Dissolve powder in 240 mL water, as directed 7 Active acetaminophen 325 MG tablet Take 2 tablets (650 mg total) by mouth every 6 (six) hours as needed for Pain. 0 7 Active aspirin EC 81 MG EC tablet Take 1 tablet (81 mg total) by mouth daily. 8 Active isosorbide mononitrate ER 60 MG 24 hr tablet Take 1 tablet (60 mg total) by mouth daily. 30 tablet 7 8 Active nitroglycerin 0.[address] 1 tablet (0.4 mg total) under the tongue every 5 (five) minutes as needed for Chest Pain. Max of 3 doses, after third dose call 911 25 tablet 1 8 Active traZODone 150 MG tablet Take 1 tablet (150 mg total) by mouth nightly at bedtime. 8 Active topiramate 25 MG capsule Take 2 capsules (50 mg total) by mouth nightly at bedtime. 9 Active warfarin 2 MG tablet Take 2&1/2 tablets (4.5mg) once a day in the evening. 9 Active potassium chloride CR 20 MEQ tablet Take 1 tablet (20 mEq total) by mouth daily. 9 Active furosemide 20 MG tablet Take 1 tablet (20 mg total) by mouth every morning. 30 tablet 9 Active risperiDONE 0.5 MG tablet Take 1 tablet (0.5 mg total) by mouth every morning. 0 9 Active nicotine polacrilex 2 MG gum Take 1 each (2 mg total) by mouth as needed for Smoking cessation. 100 tablet 9 Active cetirizine 5 MG chewable tablet Chew 1 tablet (5 mg total) by mouth daily. 14 tablet 9 Active guaifenesin 100 MG/5ML syrup 1 teaspoon as needed for cough 120 mL 9 Active phytonadione 5 MG tablet Take 1 tablet (5 mg total) by mouth as needed. 1 tablet 9 Active HYDROCORTISONE, TOPICAL, 1 % Solution Apply twice a day. 9 Active atorvastatin 80 MG tablet Take 1 tablet (80 mg total) by mouth nightly at bedtime. 90 tablet 1 9 Active fenofibrate 54 MG tablet Take 1 tablet (54 mg total) by mouth daily with breakfast. 30 tablet 3 9 Active Active Problems Problem Noted Date Diagnosed Date Tachycardia 12/17/2018 Dizziness 12/17/2018 Mitral regurgitation 08/03/2018 Benign essential HTN 08/03/2018 Dyslipidemia 08/03/2018 PVD (peripheral vascular disease) 09/19/2017 CAD (coronary artery disease) 09/19/2017 CHF (congestive heart failure) ([facility]) 08/22/2017 S/P ascending aortic aneurysm repair 03/27/2015 S/P CABG x 5 06/04/2009 Iron deficiency anemia Hyperlipidemia Coronary artery disease Carotid stenosis Aortic regurgitation Anxiety Hypertension Congestive heart failure ([facility]) Cardiac murmur Kidney disease Encounters Date Type Department Care Team Description 11/04/2024 4:45 PM STEAM DRIER TENDER - 11/04/2024 11:59 PM STEAM DRIER TENDER Hospital Encounter [facility] [place] [address] eCm Romero MD Discharge Disposition: Home or Self Care (Routine Discharge) 11/04/2024 Orders Only [facility] [place] [address] Cem Romero MD from Last 3 Months Family History Medical History Relation Comments Heart Attack Mother heart attack, open heart and stent Paternal Gran dfather Heart Attack Paternal Grandmother Relation Status Comments Brother 1 Alive CVA Brother 2 Alive Mitral Valve Pro lapse Father (Age 58) Maternal Grandfather (Age 83) MA Maternal Grandmother (Age 46) MA Mother (Age 56) MA Paternal Grandfather (Age 83) Paternal Grandmother (Age 46) Social History Tobacco Use Types Packs/Day Years Used Date Smoking Tobacco: Some Days Cigarettes 0.5 30 Smokeless Tobacco: Never Alcohol Use Standard Drinks/Week Comments No 0 (1 standard drink = 0.6 oz pur e alcohol) Comments No Sex and Gender Information Value Date Recorded Sex Assigned at Not on file Legal Sex Female 9:09 PM CDT Gender Identity Not on file Sexual Orientation Not on file Occupation Industry Job Start Date Job End Date Not on file Not on file Not on file Not on file Last Filed Vital Signs Vital Sign Reading Time Taken Comments Blood Pressure 120/70 01/15/2019 10:30 AM CDT Pulse 99 01/15/2019 10:30 AM CDT Temperature 37.1 C (98.7 F) 08/31/2018 12:53 PM STEAM DRIER TENDER Respiratory Rate 20 08/31/2018 2:21 PM STEAM DRIER TENDER Oxygen Saturation 92% 01/15/2019 10:30 AM CDT Inhaled Oxygen Concentration - - Weight 92.5 kg (204 lb) 01/15/2019 10:30 AM CDT Height 162.6 cm (5' 4 ) 01/15/2019 10:30 AM CDT Body Mass Index 35.02 01/15/2019 10:30 AM CDT Plan of Treatment Health Maintenance Due Date Last Done Comments Colorectal Cancer Screening Colonoscopy (10 Years) 1971 Annual Physical 1974 Hepatitis C 1989 Hepatitis B Vaccines (1 of 3 - 19+ 3-dose series) 1990 Pneumococcal Vaccine: 50+ Years (1 of 2 - PCV) 1990 Mammogram Screening 2011 ASCVD LDL 08/21/2019 08/21/2018, 11/17, 02/24/2017, Additional history exists DTaP, Tdap and Td Vaccines (2 - Td or Tdap) 07/04/2020 07/04/2010 Zoster Vaccines (1 of 2) 2021 COVID-19 Vaccine ( - season) 2024 Meningococcal B Vaccine Aged Out No l onger eligible based on patient's age to complete this topic Meningococcal Vaccine Aged Out No ronny corrina eligible based on patient's age to complete this topic RSV Immunizations Under 20 Months Aged Out No longer eligible based on patient's age to complete this topic Procedures Procedure Name Priority Date/Time Associated Diagnosis Comments PROTHROMBIN TIME, VENOUS Routine 11/04/2024 3:28 PM STEAM DRIER TENDER MCC (current) use of anticoagulants LIPID PANEL Routine 08/21/2018 11:28 AM STEAM DRIER TENDER Dyslipidemia Benign essential HTN from Last 3 Months or Most Recently Relevant to Health Maintenance Results * (ABNORMAL) PROTIME/INR, VENOUS (11/04/2024 3:28 PM STEAM DRIER TENDER) PROTIME 32.2(H) 10.2 - 12.9 SEC 11/04/2024 5:43 PM STEAM DRIER TENDER [facility] INR 2.9 11/04/2024 5:43 PM [facility] Comment: Recommended INR Therapeutic Goals: 2.0-3.0 Routine Therapy 2.5-3.5 Mechanical Prosthetic Valves (High Risk) 11/04/2024 3:28 PM STEAM DRIER TENDER us Cem Romero MD LABORATORY Final Result [facility] [address] [place] [address], [place] [phone] * (ABNORMAL) LIPID PANEL (08/21/2018 11:28 AM STEAM DRIER TENDER) CHOLESTEROL 146 <200 MG/DL 08/21/2018 12:35 PM [facility] TRIGLYCERIDES 189(H) <150 MG/DL 08/21/2018 12:35 PM [facility] HDL 34(L) >40.0 MG/DL 08/21/2018 12:35 PM [facility] LDL (CALCULATED) 74 <100 MG/DL 08/21/2018 12:35 PM [facility] NON HDL CHOLESTEROL 112 <130 MG/DL 08/21/2018 12:35 PM [facility] CHOL/HDL RATIO 4.3 0.0 - 4.5 08/21/2018 12:35 PM [facility] VLDL CALCULATION 38 5 - 55 MG/DL 08/21/2018 12:35 PM STEAM DRIER TENDER [facility] LIPID INTERPRETATION 08/21/2018 12:35 PM STEAM DRIER TENDER [facility] Comment: NIH CONCENSUS REPORT RECOMMENDATIONS: ADULT CHILD LOW RISK: CHOLESTEROL <200 <170 TRIGLYCERIDE <150 --- HDL >=60 --- LDL <100 <110 BORDERLINE: CHOLESTEROL 200-239 170-199 TRIGLYCERIDE 150-199 --- HDL 40-59 --- LDL 100-159 110-129 HIGH RISK: CHOLESTEROL >=240 >=200 TRIGLYCERIDE >=200 --- HDL <40 --- LDL >=160 >=130 08/21/2018 11:2 8 AM STEAM DRIER TENDER Paz Duenas [employer]ENT[employer]-C LABORATORY Final Re sult [facility] [address] [place] [address], from Last 3 Months or Most Recently Relevant to Health Maintenance Insurance [facility] Care Teams Transition Advisor Relationship Specialty Start Date End Date None, Provider, PCP - General 04/24/19 Flo Cota MD [address] [facility] [address] [address] [facility] CARDIOVASCULAR DISEASE 08/23/17
--- OUTSIDE RECORDS SUMMARY | 2025-01-27 08:38 | XMS_ITS | Referral Summary ---
Author Organization [facility] Address [address] [place] [address] Care Team Providers Care Forest Nursery Worker Name Role Phone Tameka Clark MD Primary Care Provider [phone] Allergies Active Allergy Reactions Criticality Noted Date [...] by mouth daily Active cholecalciferol (VITAMIN D-3) 78104 unit tablet Take 50,000 Units by mouth [...] artery disease of n ative artery of [place] heart with stable angina pectoris 06/27/2022 Tobacco [...] (02/09/2021): Added automatically from request for surgery [id number] Assessment & Plan (03/01/2021 6:04 AM CDT): S/p TEVAR 2016 c/b slow growth in the area now presenting for repeat TEVAR. Repeat TEVAR done 02/23. - lumbar drain out 02/25 - SBP >100 - q4h NV checks, allow patient to sleep at night - ContinueASA, Statin - Groin duplex 02/27 negative for pseudoaneurysm Social History Tobacco Use Types Packs/Day Years [...] on file Sexual Orientation Not on file Last Filed Vital Signs Vital Sign Reading Time Taken Comments Blood Pressure 108/60 08/25/2022 1:30 PM HAT MAKER Pulse 65 08/25/2022 1:30 PM HAT MAKER Temperature 36.2 C (97.2 F) 10/06/2021 8:00 AM HAT MAKER Respiratory Rate 16 03/01/2021 11:45 AM CDT Oxygen Saturation 94% 06/27/2022 3:39 PM CDT Inhaled Oxygen Concentration - - Weight 87.1 kg (192 lb) 08/25/2022 1:30 PM HAT MAKER Height 162.6 cm (5' 4 ) 08/25/2022 1:30 PM HAT MAKER Body Mass Index 32.96 08/25/2022 1:30 PM HAT MAKER Plan of Treatment Not on file Medical Devices Implanted Type Area Special Tax Auditor Device Identifier Shelf Expiration Date Model / Serial / Lot [employer] [id number] Zenith Alpha Flexor Captor 28mm 24-25mm 16fr 109mm 2 Piece - [id number] Implanted:Qty: 1 on 02/23/2021 by Quang Corrigan MD PhD at [facility] Endoprosthesis Aorta [employer] 11/23/2021 [id number] / / [id number] [employer] [id number] Zenith 36mm 20-30mm 16mm 180mm 9 Dissection Introducer Sheath - [id number] Implanted:Qty: 1 on 02/23/2021 by Quang Corrigan MD PhD at [facility] Stent Aorta [employer] 11/04/2023 [id number] / / [id number] Insurance [facility] Advance Directives For more information, please contact: [phone] * Full Code (Latest Code Status on File) Date Activated Date Inactivated Comments 02/23/2021 5:22 PM 03/01/2021 9:14 PM Care Teams Forest Nursery Worker Relationship Specialty Start Date End Date Tameka Clark MD [address] [facility] [address] [place] [address] PCP - General 03/19/17
--- OUTSIDE RECORDS SUMMARY | 2025-01-27 08:38 | XMS_ITS | Encounter Summary ---
Author Organization [facility] Address [address] [place] [address] Phone Care Team Providers Care Dining Room Hostess Name Role Phone Unavailable Primary Care Provider Unavailabl e Encounter Details Date Type Department Care Team (Late st Contact Info) Description 01/13/2025 Lab Requisition [facility] Services [address] [place] [address] Jonathan Mcclain MD [address] [place] [address] Social History Tobacco Use Types Packs/Day Years Used Date Smoking Tobacco: Never Assessed Comments Unknown Sex and Gender Information Value Date Recorded Sex Assigned at Not on file Legal Sex Female 3:07 AM NIGHT CLUB MANAGER Gender Identity Not on file Sexual Orientation Not on file documented as of this encounter Plan of Treatment Not on file documented as of this encounter Procedures Procedure Name Priority Date/Time Associated Diagnosis Comments PROTIME (PT) (PROTHROMBIN TIME) Routine 01/13/2025 4:40 PM CDT documented in this encounter Results * (ABNORMAL) PROTIME (PT) (PROTHROMBIN TIME) (01/13/2025 4:40 PM CDT) PROTIME-PATIENT 38.1(H) 11.6 - 14.8 sec 01/13/2025 9:10 PM CDT [facility] INR 4.0(H) 0.9 - 1.2 01/13/2025 9:10 PM CDT [facility] Comment: Therapeutic Ranges INR = 2.0-3.0: Venous thromb, atrial fib, pul embolism, tissue heart valve, ami. INR = 2.5-3.5: Mechanical heart valve Critical value for INR is >/= 4.5 Blood No Phlebotomy Charged / Unknown 01/13/2025 4:40 PM CDT 01/13/2025 8:47 PM CDT us Jonathan Mcclain MD HEMATOLOGY ORDERABLES Samanta vitale Result [facility] [place] [address] documented in this encounter Visit Diagnoses Not on filedocumented in this encounter
--- OUTSIDE RECORDS SUMMARY | 2025-01-27 08:38 | XMS_ITS | Clinical Summary ---
Author Organization [facility] Address [address] [place] [address] Care Team Providers Care Direct Casting Operator Name Role Phone Unavailable Primary Care Provider Unavailabl e Allergies Active Allergy Reactions Criticality Noted Date Comments Oxycodone-Acetaminophen 09/19/1999 Encounters Date Type Department Care Team Description 01/13/2025 [facility] [address] [place] [address] Jonathan Mcclain MD 01/03/2025 Lab [facility] [address] [place] [address] Cem Romero MD from Last 3 Months Immunizations Immunization Administration Dates Next Due Covid-19, Mrna, Lnp-s, Pf, 30 Mcg/0.3 Ml Dose (P fizer) 07/23/2021 Social History Tobacco Use Types Packs/Day Years Used Date Smoking Tobacco: Never Assessed Comments Unknown Sex and Gender Information Value Date Recorded Sex Assigned at Not on file Legal Sex Female 3:07 AM TELECOMMUNICATIONS FIELD 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 Gender Identity Not on file Sexual Orientation Not on file Plan of Treatment Health Maintenance Due Date Last Done Comments Hepatitis C Virus (HCV) Screening 1971 Hepatitis B Immunization (1 of 3 - 19+ 3-dose series) 1990 Pap Smear 1992 Cervical Cancer Screening (CCS) 2001 HPV/Cotest 2001 Colonoscopy 2016 Colorectal Cancer Screening 2016 Cologuard 2021 Immunochemical Fecal Occult Blood 2021 Mammogram 2021 Pneumococcal Immunization (5 0+ years) (2 of 2 - PCV) 2021 04/10/2015, 11/14/2014 Zoster Immunization (1 of 2) 2021 Influenza Immunization (#1) 05/19/202407/19, 11/14/2014, 09/21/2012 SARS-COV-2 Immunization ( season) 2024 07/23/2021, 03/24/2021, 11/04/2020 Respiratory Syncytial Virus (RSV) Immunization (Adult) (1 - 1-dose 75+ series) 2046 DTaP/Tdap/Td Immunization Discontinued 06/30/2010 TdaP Immunization Completed 06/30/2010 Pneumococcal Immunization Combined Discontinued 04/10/2015, 11/14/2014 Meningococcal Immunization (ACWY) Aged Out No longer eligible based on patient's age to complete this topic Rotavirus Immunization Aged Out No lo nger eligible based on patient's age to complete this topic Procedures Procedure Name Priority Date/Time Associated Diagnosis Comments PROTIME (PT) (PROTHROMBIN TIME) Routine 01/13/2025 4:40 PM CDT PROTIME (PT) (PROTHROMBIN TIME) Routine 01/03/2025 7:30 PM CDT from Last 3 Months Results * (ABNORMAL) PROTIME (PT) (PROTHROMBIN TIME) (01/13/2025 4:40 PM CDT) Only the most recent of2 resultswithin the time period is included. PROTIME-PATIENT 38.1(H) 11.6 - 14.8 sec 01/13/2025 9:10 PM CDT [facility] INR 4.0(H) 0.9 - 1.2 01/13/2025 9:10 PM CDT [facility] Comment: Therapeutic Ranges INR = 2.0-3.0: Venous thromb, atrial fib, pul embolism, tissue heart valve, ami. INR = 2.5-3.5: Mechanical heart valve Critical value for INR is >/= 4.5 Blood No Phlebotomy Charged / Unknown 01/13/2025 4:40 PM CDT 01/13/2025 8:47 PM CDT us Jonathan Mcclain MD HEMATOLOGY ORDERABLES Samanta vitale Result [facility] [place] [address] from Last 3 Months
[2025-01-27 08:51] LABS: Estimated Glomerular Filt Rate > 60
== END 2025-01-27 08:30 | disposition home or self-care (01) ==
PROVIDERS: PCP Pediatrics Neonatal-Perinatal Medicine; Visit Provider Nurse Practitioner
DX: I71.40 Abdominal aortic aneurysm, without rupture, unspecified (principal); I71.03 Dissection of thoracoabdominal aorta; Z95.828 Presence of other vascular implants and grafts; R19.7 Diarrhea, unspecified; R11.15 Cyclical vomiting syndrome unrelated to migraine
CPT/HCPCS: 74177; Q9967

== ENCOUNTER 2025-05-13 06:33 | Emergency (ER) | payer OTHER, SELFPAY ==
--- NOTE | ~2025-05-13 | XR_ITS ---
XR knee RT 3V 05/13/2025 09:04 INDICATION: Status post fall. Right knee pain. PROCEDURE: 3 views right knee COMPARISON: No prior studies for comparison. FINDINGS: Fracture, dislocation or subluxation is not identified. The soft tissues appear within normal limits. No foreign bodies are identified. IMPRESSION: 1: NO ACUTE BONE OR JOINT ABNORMALITY IDENTIFIED. Reviewed, dictated and finalized at location O.
--- NOTE | ~2025-05-13 | XR_ITS ---
XR humerus LT 05/13/2025 09:04 Indication: Status post fall. Left arm pain. Procedure: 2 views left humerus Comparison: No prior studies for comparison. Findings: There is a comminuted displaced and angulated midshaft fracture of the left humerus with varus angulation. No foreign bodies. No significant soft tissue abnormality. Endovascular stent noted in the aorta. Impression: 1: Comminuted displaced and angulated midshaft fracture left humerus. Reviewed, dictated and finalized at location O. Impression: 1: Comminuted displaced and angulated midshaft fracture left humerus.
--- NOTE | ~2025-05-13 | XR_ITS ---
XR ankle LT min 3V 05/13/2025 09:04 INDICATION: Left ankle pain after fall PROCEDURE: 4 views left ankle COMPARISON: 07/06/2021 FINDINGS: Fracture, dislocation or subluxation is not identified. The soft tissues appear within normal limits. No foreign bodies are identified. IMPRESSION: 1: NO ACUTE BONE OR JOINT ABNORMALITY IDENTIFIED. Reviewed, dictated and finalized at location O.
[2025-05-13 06:35] VITALS: BP 112/66; PULSE 62; RESP 16; TEMP 36.9; O2SAT 100
--- NOTE | 2025-05-13 07:14 | ED.FALL ---
HPI - Fall General Chief Complaint: Fall Stated Complaint: fall Time Seen by Provider: 05/13/25 07:03 History of Present Illness HPI Narrative: This is a 55-year-old female with history of CAD status post stents and CABG, aortic dissection, hypertension, hyperlipidemia who presents to the ED for fall. Patient states that she was walking to her bathroom when she slipped and fell onto her left side. She reports left arm pain, right knee pain, left ankle pain. Denies any preceding symptoms including headache, lightheadedness, dizziness, chest pain, palpitations, shortness of breath. Related Data Home Medications ?Medication ?Instructions ?Recorded ?Confirmed ?Last Taken ?Type acetaminophen 325 mg chewable 650 mg PO Q4-6H PRN Mild Pain 07/06/21 03/07/25 Unknown History tablet (Scale Score 1-4) aspirin 81 mg tablet,delayed 81 mg PO DAILY 07/06/21 03/07/25 Unknown History release atorvastatin 80 mg tablet 80 mg PO DAILY 07/06/21 03/07/25 Unknown History cyclobenzaprine 10 mg tablet 10 mg PO DAILY 07/06/21 03/07/25 Unknown History docusate sodium 100 mg capsule 100 mg PO BID 07/06/21 03/07/25 Unknown History famotidine 20 mg tablet 20 mg PO QPM 07/06/21 03/07/25 Unknown History fludrocortisone 0.1 mg tablet 0.1 mg PO DAILY 07/06/21 03/07/25 Unknown History furosemide 20 mg tablet (Lasix) 20 mg PO EVERY OTHER DAY 07/06/21 03/07/25 07/06/21 08:00 History isosorbide mononitrate 60 mg 60 mg PO DAILY 07/06/21 03/07/25 Unknown History tablet,extended release 24 hr loratadine 10 mg capsule 10 mg PO DAILY 07/06/21 03/07/25 Unknown History mecobalamin (vitamin B12) 1,000 1,000 mcg PO DAILY 07/06/21 03/07/25 Unknown History mcg chewable tablet (B12 Active) metoprolol tartrate 25 mg tablet 6.25 mg PO DAILY 07/06/21 03/07/25 Unknown History multivitamin 1 tablet PO DAILY 07/06/21 03/07/25 Unknown History nitroglycerin 0.4 mg sublingual 0.4 mg sublingual Q5M PRN Chest 07/06/21 03/07/25 Unknown History tablet Pain nystatin 100,000 unit/gram topical 1 applic topical BID 07/06/21 03/07/25 Unknown History powder (Nystop) polyethylene glycol 3350 17 17 g PO DAILY PRN Constipation 07/06/21 03/07/25 Unknown History gram/dose oral powder potassium chloride 20 mEq 20 meq PO DAILY 07/06/21 03/07/25 Unknown History tablet,extended release(part/cryst) risperidone 0.5 mg tablet 0.5 mg PO BID 07/06/21 03/07/25 Unknown History topiramate 25 mg tablet 50 mg PO DAILY 07/06/21 03/07/25 Unknown History trazodone 100 mg tablet 100 mg PO DAILY 07/06/21 03/07/25 Unknown History cholecalciferol (vitamin D3) 1,250 1,250 mcg PO WEEKLY 03/07/25 03/07/25 Unknown History mcg (50,000 unit) capsule cyanocobalamin (vitamin B-12) 100 100 mcg PO DAILY 03/07/25 03/07/25 Unknown History mcg tablet diphenhydramine HCl 25 mg capsule 50 mg PO HS 03/07/25 03/07/25 Unknown History (Allergy (diphenhydramine)) eszopiclone 1 mg tablet 1 mg PO HS 03/07/25 03/07/25 Unknown History fluticasone propionate 50 1 spray intranasal Q12H 03/07/25 03/07/25 Unknown History mcg/actuation nasal spray,suspension guaifenesin 600 mg PO BID 03/07/25 03/07/25 Unknown History isosorbide mononitrate 120 mg 120 mg PO DAILY 03/07/25 03/07/25 Unknown History tablet,extended release 24 hr lidocaine 5 % topical patch 1 patch topical Q24H 03/07/25 03/07/25 Unknown History meloxicam 7.5 mg tablet 7.5 mg PO DAILY PRN pain 03/07/25 03/07/25 Unknown History nystatin 100,000 unit/gram topical 1 applic topical QID 03/07/25 03/07/25 Unknown History cream promethazine 12.5 mg tablet 12.5 mg PO Q4H PRN nausea and 03/07/25 03/07/25 Unknown History vomiting quetiapine 100 mg tablet 100 mg PO HS 03/07/25 03/07/25 Unknown History ropinirole 0.5 mg tablet 0.5 mg PO HS 03/07/25 03/07/25 Unknown History temazepam 15 mg capsule 15 mg PO HS 03/07/25 03/07/25 Unknown History topiramate 50 mg tablet 75 mg PO HS 03/07/25 03/07/25 Unknown History tramadol 50 mg tablet 50 mg PO Q8H PRN pain 03/07/25 03/07/25 Unknown History triamcinolone acetonide 0.1 % 1 applic topical TID 03/07/25 03/07/25 Unknown History topical cream warfarin 5 mg tablet 5 mg PO QPM 03/07/25 03/07/25 Unknown History Allergies Allergy/AdvReac Type Severity Reaction Status Date / Time morphine Allergy Unknown Verified 05/13/25 06:45 oxycodone (From Percocet) Allergy Unknown Verified 05/13/25 06:45 sumatriptan (From Imitrex) Allergy Unknown Verified 05/13/25 06:45 Review of Systems Review of Systems: Gen.: Denies fevers or chills Eyes: Denies eye pain or visual change ENT: Denies congestion Respiratory: Denies shortness of breath or cough CV: Denies chest pain or palpitations GI: Denies abdominal pain nausea, emesis or diarrhea denies burning, urgency, frequency or hematuria Musculoskeletal: Denies back pain or muscle pain Neuro: Denies numbness, tingling, weakness or focal weakness Skin: Denies rash Except as documented, all other systems reviewed and negative [facility] Past Medical History Medical History Aortic dissection Hyperlipidemia Hypertension History of coronary artery disease Surgical History Surgical History History of percutaneous coronary intervention History of coronary artery bypass graft 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 CARDIOVASCULAR: Regular rate and rhythm without murmurs rubs or gallops. ABDOMINAL: Soft, nontender, nondistended, no rebound or guarding MUSCULOSKELETAl: Left upper extremity wrist against chest. Tenderness to the midshaft humerus. Neurovascularly intact distally. Tenderness and ecchymosis over the anterior aspect of the right knee over the right patella and right proximal tibia, no crepitus. Neurovascularly intact distally. Tenderness to palpation to the left posterior aspect of the lateral malleolus. Neurovascularly intact distally. NEURO: Awake and alert. Following commands, speech normal, no focal deficits SKIN:: Warm, dry. No rashes lesions or abrasions PSYCHIATRIC: Normal affect/mood, Course Vital Signs Vital signs: Vital Signs Temperature 98.4 F 05/13/25 06:35 Pulse Rate 62 05/13/25 06:35 Respiratory Rate 16 05/13/25 06:35 Blood Pressure 112/66 05/13/25 06:35 Pulse Oximetry 100 05/13/25 06:35 Oxygen Delivery Room Air 05/13/25 06:35 Temperature 98.4 F 05/13/25 06:35 Pulse Rate 68 05/13/25 10:01 Respiratory Rate 18 05/13/25 10:01 Blood Pressure 119/60 05/13/25 10:01 Pulse Oximetry 99 05/13/25 10:01 Oxygen Delivery Room Air 05/13/25 06:35 MDM - Fall MDM Narrative Medical decision making narrative: 55-year-old female who presents to the ED for a mechanical fall. On initial evaluation, patient was bracing left arm against body with significant pain to her left arm. Also noted contusions to her right knee and left ankle. X-rays of the right knee and left ankle showed no deformities or fractures. X-ray left humerus did reveal a comminuted displaced humerus fracture. I discussed the case with Dr. Sanabria, recommends placing her in a shoulder immobilizer and will see her in clinic. INR noted to be 1.7 with her goal at 2.5. Patient was as low as 1.0 a week ago so I advised her to continue her current dose and continue to follow-up with her PCP. She was also hypokalemic at 2.9. She was given 40 mEq potassium here in the ED. advised follow-up with PCP regarding this. Patient will be given prescriptions for hydrocodone and Flexeril. Patient was agreeable to this plan. Given strict return precautions. Differential Diagnosis Differential diagnosis: Likely other (Humerus fracture, patellar fracture, tibial fracture, femur fracture, ankle fracture, sprain, contusion) Medical Records Attestation: I reviewed the patient's medical records. Lab Data Attestation: I reviewed the patient's lab results. 05/13/25 08:26 05/13/25 08:26 Labs: Lab Results 05/13/25 Range/Units 08:26 WBC 9.3 (4.5-10.0) K/mm3 RBC 4.58 (4.2-5.4) M/mm3 Hgb 13.1 (12.0-15.0) g/dL Hct 42.3 (37.0-47.0) % MCV 92.4 (80-100) fl MCH 28.6 (26-34) pg MCHC 31.0 L (32-36) g/dl RDW 14.6 H (11.5-14.5) % Plt Count 175 (150-375) k/mm3 MPV 11.2 H (7.4-10.4) fl Immature Gran % (Auto) 0.4 (0-0.5) % Neut % (Auto) 65.5 (45.5-73.1) % Lymph % (Auto) 22.6 (18.3-44.2) % [place] % (Auto) 6.2 (2.6-8.5) % Eos % (Auto) 4.9 H (0-4.4) % Baso % (Auto) 0.4 (0.2-1.2) % Lymph # (Auto) 2.11 (0.9-3.2) K/mm3 [place] # (Auto) 0.6 (0.1-0.6) K/mm3 Eos # (Auto) 0.5 H (0-0.3) K/mm3 Baso # (Auto) 0.0 (0.0-0.1) K/mm3 Abs Immat Gran (auto) 0.04 H (0.00-0.031) K/mm3 Absolute Neuts (auto) 6.1 (1.3-6.7) K/mm3 Absolute Nucleated RBC 0.000 (0.0-0.012) K/mm3 Nucleated RBC % 0.0 (0.0-0.2) % PT 19.9 H (11.1-14.7) Seconds INR 1.7 Sodium 141 (137-145) mmol/L Potassium 2.9 L (3.4-5.0) mmol/L Chloride 111 H (98-107) mmol/L Carbon Dioxide 25 (22-30) mmol/L Anion Gap 5 (4-12) mmol/L BUN 13 D (7-17) mg/dL Creatinine 0.70 (0.7-1.0) mg/dL Estim Creat Clear Calc 80 ml/min Estimated GFR > 60 (59 - ) Glucose 113 H (65-110) mg/dL Calcium 8.9 (8.4-10.2) mg/dL Total Bilirubin 0.4 (0.2-1.3) mg/dL AST 23 (14-36) U/L ALT 16 (6-35) U/L Alkaline Phosphatase 147 H (38-126) U/L Total Protein 6.4 (6.3-8.2) g/dL Albumin 3.6 (3.5-5.1) g/dL Imaging Data Radiologist's impression: Impressions Knee X-Ray 05/13/25 09:06 IMPRESSION: 1: NO ACUTE BONE OR JOINT ABNORMALITY IDENTIFIED. Humerus X-Ray 05/13/25 09:07 Impression: 1: Comminuted displaced and angulated midshaft fracture left humerus. Ankle X-Ray 05/13/25 09:08 IMPRESSION: 1: NO ACUTE BONE OR JOINT ABNORMALITY IDENTIFIED. Discharge Plan Discharge Clinical Impression: Fracture, humerus closed Qualifiers: Encounter type: initial encounter Humerus Location: shaft Fracture morphology: comminuted Fracture alignment: displaced Laterality: left Qualified Code(s): S42.352A - Displaced comminuted fracture of shaft of humerus, left arm, initial encounter for closed fracture Fall Qualifiers: Encounter type: initial encounter Qualified Code(s): W19.XXXA - Unspecified fall, initial encounter Contusion of knee Qualifiers: Encounter type: initial encounter Laterality: right Qualified Code(s): S80.01XA - Contusion of right knee, initial encounter Ankle sprain Qualifiers: Encounter type: initial encounter Involved ligament of ankle: unspecified ligament Laterality: left Qualified Code(s): S93.402A - Sprain of unspecified ligament of left ankle, initial encounter Patient Disposition: Home Condition: Stable Instructions: Antibiotic Form, Ankle Sprain (ED), Arm Fracture in Adults (ED) Additional Instructions: Take hydrocodone and Flexeril as prescribed. Follow-up with Dr. Sanabria, orthopedic surgery, for further evaluation of your humerus fracture. Continued follow-up with the PCP regarding home medications. Return ED for any new or worsening symptoms. Patient Language: Occitan Prescriptions: New hydrocodone-acetaminophen 10-300 mg tablet 1 tablet PO Q8H PRN (Reason: pain) Qty: 12 0RF cyclobenzaprine 10 mg tablet 10 mg PO Q8H Qty: 30 0RF No Action omeprazole 40 mg capsule,delayed release(DR/EC) 40 mg PO DAILY Qty: 30 3RF dicyclomine 10 mg capsule 10 mg PO QID PRN (Reason: abdominal pain and/or diarrhea) Qty: 120 3RF cyclobenzaprine 10 mg tablet 10 mg PO DAILY atorvastatin 80 mg Tablet 80 mg PO DAILY topiramate 25 mg Tablet 50 mg PO DAILY isosorbide mononitrate 60 mg tablet extended release 24 hr 60 mg PO DAILY famotidine 20 mg tablet 20 mg PO QPM trazodone 100 mg tablet 100 mg PO DAILY docusate sodium 100 mg capsule 100 mg PO BID furosemide [Lasix] 20 mg Tablet 20 mg PO EVERY OTHER DAY fludrocortisone 0.1 mg Tablet 0.1 mg PO DAILY risperidone 0.5 mg tablet 0.5 mg PO BID metoprolol tartrate 25 mg tablet 6.25 mg PO DAILY loratadine 10 mg Capsule 10 mg PO DAILY multivitamin Tablet 1 tablet PO DAILY aspirin 81 mg Tablet,Delayed Release (Dr/Ec) 81 mg PO DAILY potassium chloride 20 mEq tablet,ER particles/crystals 20 meq PO DAILY nitroglycerin 0.4 mg tablet, sublingual 0.4 mg sublingual Q5M PRN (Reason: Chest Pain) nystatin [Nystop] 100,000 unit/gram powder 1 applic TOPICAL BID Rx Instructions: abd skin folds polyethylene glycol 3350 17 gram/dose powder 17 g PO DAILY PRN (Reason: Constipation) mecobalamin (vitamin B12) [B12 Active] 1,000 mcg Tablet,Chewable 1,000 mcg PO DAILY acetaminophen 325 mg Tablet,Chewable 650 mg PO Q4-6H PRN (Reason: Mild Pain (Scale Score 1-4)) warfarin 6 mg tablet 6 mg PO HS Qty: 30 0RF cyanocobalamin (vitamin B-12) 100 mcg tablet 100 mcg PO DAILY guaifenesin [Mucinex] 600 mg PO BID fluticasone propionate 50 mcg/actuation spray,suspension 1 spray INTRANASAL Q12H isosorbide mononitrate 120 mg tablet extended release 24 hr 120 mg PO DAILY lidocaine 5 % adhesive patch,medicated 1 patch topical Q24H Patient Comments: 12 HOURS OFF nystatin 100,000 unit/gram cream 1 applic TOPICAL QID Patient Comments: Q SHIFT eszopiclone 1 mg tablet 1 mg PO HS warfarin 5 mg tablet 5 mg PO QPM topiramate 50 mg tablet 75 mg PO HS temazepam 15 mg capsule 15 mg PO HS ropinirole 0.5 mg tablet 0.5 mg PO HS diphenhydramine HCl [Allergy (diphenhydramine)] 25 mg capsule 50 mg PO HS quetiapine 100 mg tablet 100 mg PO HS triamcinolone acetonide 0.1 % cream 1 applic TOPICAL TID Patient Comments: LEFT ELBOW Q SHIFT ECZEMA tramadol 50 mg tablet 50 mg PO Q8H PRN (Reason: pain) meloxicam 7.5 mg tablet 7.5 mg PO DAILY PRN (Reason: pain) promethazine 12.5 mg tablet 12.5 mg PO Q4H PRN (Reason: nausea and vomiting) cholecalciferol (vitamin D3) 1,250 mcg (50,000 unit) capsule 1,250 mcg PO WEEKLY Follow-up/Referrals: Matthew Sanabria MD [Physician, Orthopedics] Zoran Romero MD [Primary Care Provider, Pediatric Emergency Medicine]
--- OUTSIDE RECORDS SUMMARY | 2025-05-13 07:22 | XMS_ITS | Encounter Summary ---
Author Organization [facility] Address [facility] [place] [address] Care Team Providers Care Family Preservation Officer Name Role Phone Tameka Clark MD Primary Care Provider [phone] Flo Cota MD Unavailable [phone] None, Provider MD Primary Care Provider Unavaila ble Encounter Details Date Type Department Care Team (Late st Contact Info) Description 12/21/2017 Abstract [facility] at [facility], [address] [address] Alok Vincent MA Social History Tobacco Use [...] on filedocumented in this encounter Care Teams Family Preservation Officer Relationship Specialty Start Date End Date Tameka Clark MD PCP - General INTERNAL MEDICINE 08/30/16 04/23/19 Yony Adkins MD PCP - General 04/24/19 Flo Cota MD [facility] [address] [place] [id number] Cathie Administrative Representative CARDIOVASCULAR DISEASE 08/23/17 documented as of this encounter
--- OUTSIDE RECORDS SUMMARY | 2025-05-13 07:22 | XMS_ITS | Encounter Summary ---
Author Organization [facility] Address [address] 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 INR = 2.5-3.5: Mechanical heart valve Critical value for INR is >/= 4.5 Blood No Phlebotomy Charged / Unknown 01/13/2025 4:40 PM CDT 01/13/2025 8:47 PM CDT us Jonathan Mcclain MD HEMATOLOGY ORDERABLES Samanta vitale Result [facility] [place] [address] documented in this encounter Visit Diagnoses Not on filedocumented in this encounter
--- OUTSIDE RECORDS SUMMARY | 2025-05-13 07:22 | XMS_ITS | Encounter Summary ---
Author Organization [facility] Address [address] 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 INR = 2.5-3.5: Mechanical heart valve Critical value for INR is >/= 4.5 Blood No Phlebotomy Charged / Unknown 01/03/2025 7:30 PM CDT 01/03/2025 7:30 PM CDT us Cem Romero MD HEMATOLOGY ORDERABLES Final Resu lt [facility] [place] [address] documented in this encounter Visit Diagnoses Not on filedocumented in this encounter
--- OUTSIDE RECORDS SUMMARY | 2025-05-13 07:22 | XMS_ITS | Clinical Summary ---
Author Organization [facility] Address [address] [place] [address] Care Team Providers Care Cripple Worker Name Role Phone Unavailable Primary Care Provider Unavailabl e Allergies Active Allergy Reactions Criticality Noted Date Comments Oxycodone-Acetaminophen 09/19/1999 Immunizations Immunization Administration Dates Next Due Covid-19, Mrna, Lnp-s, Pf, 30 Mcg/0.3 Ml Dose (P fizer) 07/23/2021 Social History Tobacco Use Types Packs/Day Years Used Date Smoking Tobacco: Never Assessed Comments Unknown Sex and Gender Information Value Date Recorded Sex Assigned at Not on file 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 Gender Identity Not on file Sexual Orientation Not on file Plan of Treatment Health Maintenance Due Date Last Done Comments Hepatitis C Virus (HCV) Screening 1971 Mammogram 1971 Hepatitis B Immunization (1 of 3 - 19+ 3-dose series) 1990 Pap Smear 1992 Cervical Cancer Screening (CCS) 2001 HPV/Cotest 2001 Cologuard 2016 Colonoscopy 2016 Colorectal Cancer Screening 2016 Immunochemical Fecal Occult Blood 2016 Pneumococcal Immunization (5 0+ years) (2 of 2 - PCV) 2021 04/10/2015, 11/14/2014 Zoster Immunization (1 of 2) 2021 SARS-COV-2 Immunization ( - 2023- season) 2024 07/23/2021, 03/24/2021, 11/04/2020 Influenza Immunization (#1) 05/19/202507/19, 11/14/2014, 09/21/2012 Respiratory Syncytial Virus (RSV) Immunization (Adult) (1 - 1-dose 75+ series) 2046 DTaP/Tdap/Td Immunization Discontinued 06/30/2010 TdaP Immunization Completed 06/30/2010 Pneumococcal Immunization Combined Discontinued 04/10/2015, 11/14/2014 Human Papillomavirus (HPV) Immunization Aged Out No longer eligible based on patient's age to complete this topic Meningococcal Immunization (ACWY) Aged Out No longer eligible based on patient's age to complete this topic Rotavirus Immunization Aged Out No lo nger eligible based on patient's age to complete this topic
--- OUTSIDE RECORDS SUMMARY | 2025-05-13 07:22 | XMS_ITS | Encounter Summary ---
Author Organization [facility] Address [address] [place] [address] Phone Care Team Providers Care Lead Embedded Software Engineer Name Role Phone Tameka Clark MD Primary Care Provider [phone] Encounter Details Date Type Department Care Team [...] documented as of this encounter Care Teams Lead Embedded Software Engineer Relationship Specialty Start Date End Date Tameka Clark MD [address] [facility] [address] [place] [address] PCP - General 03/19/17 documented as of this encounter
--- OUTSIDE RECORDS SUMMARY | 2025-05-13 07:22 | XMS_ITS | Encounter Summary ---
Author Organization [facility] Address [address] [place] [address] Phone Care Team Providers Care Rn Employee Health Name Role Phone Tameka Clark MD Primary Care Provider [phone] Encounter Details Date Type Department Care Team [...] documented as of this encounter Care Teams Rn Employee Health Relationship Specialty Start Date End Date Tameka Clark MD [address] [address] PCP - General 03/19/17 documented as of this encounter
--- OUTSIDE RECORDS SUMMARY | 2025-05-13 07:23 | XMS_ITS | Clinical Summary ---
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 06/27/2022 Tobacco [...] (02/09/2021): Added automatically from request for surgery [id number] Assessment & Plan (03/01/2021 6:04 AM CDT): [...] Comments Blood Pressure 108/60 08/25/2022 1:30 PM HAND SPRAYER Pulse 65 08/25/2022 1:30 PM HAND SPRAYER Temperature 36.2 C (97.2 F) 10/06/2021 8:00 AM HAND SPRAYER Respiratory Rate 16 03/01/2021 11:45 AM CDT Oxygen Saturation 94% 06/27/2022 3:39 PM CDT Inhaled Oxygen Concentration - - Weight 87.1 kg (192 lb) 08/25/2022 1:30 PM HAND SPRAYER Height 162.6 cm (5' 4) 08/25/2022 1:30 PM HAND SPRAYER Body Mass Index 32.96 08/25/2022 1:30 PM HAND SPRAYER Plan of Treatment Health Maintenance Due Date [...] 5 season) 2024 07/23/2021 Influenza Vaccine (#1) 2025 7, 07/28/2015, 11/14/2014, Additional history exists Medical Devices Implanted Type Area Dough Cutting Machine Operator Device Identifier Shelf Expiration Date Model / Serial / Lot [employer] [id number] Zenith Alpha Flexor Captor 28mm 24-25mm 16fr 109mm 2 Piece - [id number] Implanted:Qty: 1 on 02/23/2021 by Quang Corrigan MD PhD at [facility] Endoprosthesis Aorta [employer] 11/23/2021 [id number] / / [id number] [employer] [id number] Zenith 36mm 20-30mm 16mm 180mm 9 Dissection Introducer Sheath - [id number] Implanted:Qty: 1 on 02/23/2021 by Quang Corrigan MD PhD at [facility] Stent Aorta [employer] 11/04/2023 [id number] / / [id number] Insurance [facility] Advance Directives For more information, please contact: [phone] * Full Code (Latest Code Status on File) Date Activated Date Inactivated Comments 02/23/2021 5:22 PM 03/01/2021 9:14 PM Care Teams Senior Marketing Engineer Relationship Specialty [place] [address] [place] [id number] PCP - General 03/19/17
--- OUTSIDE RECORDS SUMMARY | 2025-05-13 07:23 | XMS_ITS | Clinical Summary ---
Author Organization [facility] Address [address] [place] [address] Care Team Providers Care Junior Engineer Name Role Phone Flo Cota MD Unavailable [phone] None, Provider MD Primary Care Provider [...] bedtime. 2 6 Active Vitamin D, Ergocalciferol, 85696 UNITS capsule Take 50,000 Units by mouth [...] artery disease) 09/19/2017 CHF (congestive heart failure) ([facility]) 08/22/2017 S/P ascending aortic aneurysm repair 03/27/2015 S/P CABG x 5 06/04/2009 Iron deficiency anemia Hyperlipidemia Coronary artery disease Carotid stenosis Aortic regurgitation Anxiety Hypertension Congestive heart failure ([facility]) Cardiac murmur Kidney disease Family History Medical History Relation Comments Heart Attack Mother heart attack, open heart and stent Paternal Gran dfather Heart Attack Paternal Grandmother Relation Status Comments Brother 1 Alive CVA Brother 2 Alive Mitral Valve Pro lapse Father (Age 58) Maternal Grandfather (Age 83) [place] Maternal Grandmother (Age 46) [place] Mother (Age 56) [place] Paternal Grandfather (Age 83) Paternal Grandmother (Age [...] 37.1 C (98.7 F) 08/31/2018 12:53 PM MOLDER OFFBEARER Respiratory Rate 20 08/31/2018 2:21 PM MOLDER OFFBEARER Oxygen Saturation 92% 01/15/2019 10:30 AM CDT Inhaled Oxygen Concentration - - Weight 92.5 kg (204 lb) 01/15/2019 10:30 AM CDT Height 162.6 cm (5' 4) 01/15/2019 10:30 AM CDT Body Mass Index [...] of 2) 2021 COVID-19 Vaccine ( - 2023- season) 2024 Meningococcal B Vaccine Aged Out No l onger eligible based on patient's age to complete this topic Meningococcal Vaccine Aged Out No ronny corrina eligible based on patient's age to complete this topic RSV Immunizations Under 20 Months Aged Out No longer eligible based on patient's age to complete this topic Procedures Procedure Name Priority Date/Time Associated Diagnosis Comments LIPID PANEL Routine 08/21/2018 11:28 AM MOLDER OFFBEARER Dyslipidemia Benign essential HTN from Last 3 Months or Most Recently Relevant to Health Maintenance Results * (ABNORMAL) LIPID PANEL (08/21/2018 11:28 AM MOLDER OFFBEARER) CHOLESTEROL 146 <200 MG/DL 08/21/2018 12:35 PM [facility] TRIGLYCERIDES 189(H) <150 MG/DL 08/21/2018 12:35 PM MOLDER OFFBEARER [facility] HDL 34(L) >40.0 MG/DL 08/21/2018 12:35 PM [facility] LDL (CALCULATED) 74 <100 MG/DL 08/21/2018 12:35 PM MOLDER OFFBEARER [facility] NON HDL CHOLESTEROL 112 <130 MG/DL 08/21/2018 12:35 PM [facility] CHOL/HDL RATIO 4.3 0.0 - 4.5 08/21/2018 12:35 PM [facility] VLDL CALCULATION 38 5 - 55 MG/DL 08/21/2018 12:35 PM [facility] LIPID INTERPRETATION 08/21/2018 12:35 PM [facility] Comment: [facility] CONCENSUS REPORT RECOMMENDATIONS: ADULT CHILD LOW RISK: CHOLESTEROL <200 <170 TRIGLYCERIDE <150 --- HDL >=60 --- LDL <100 <110 BORDERLINE: CHOLESTEROL 200-239 170-199 TRIGLYCERIDE 150-199 --- HDL 40-59 --- LDL 100-159 110-129 HIGH RISK: CHOLESTEROL >=240 >=200 TRIGLYCERIDE >=200 --- HDL <40 --- LDL >=160 >=130 08/21/2018 11:2 8 AM MOLDER OFFBEARER Paz Duenas [employer] [facility] Final Re sult [facility] [address] [place] [address], from Last 3 Months or Most Recently Relevant to Health Maintenance Insurance [employer] Care Teams Junior Engineer Relationship Specialty Start Date End Date None, Provider, PCP - General 04/24/19 Flo Cota MD [facility] [address] [place] [address] [employer] Pressing Machine Tender CARDIOVASCULAR DISEASE 08/23/17
[2025-05-13 07:43] VITALS: BP 115/64; PULSE 64; RESP 18; O2SAT 97
--- NOTE | 2025-05-13 07:50 | PC.NURSE ---
Pt declined ekg.
[2025-05-13 08:33] LABS: Hematocrit 42.3 % (37.0-47.0); Hemoglobin 13.1 g/dL (12.0-15.0); Immature Granulocyte Percent A 0.4 % (0-0.5); Lymphocytes Absolute Auto 2.11 K/mm3 (0.9-3.2); Mean Corpuscular HGB Conc 31.0 g/dl (32-36); Mean Corpuscular Hemoglobin 28.6 pg (26-34); Mean Corpuscular Volume 92.4 fl (80-100); Nucleated Red Blood Cells Absolute Auto 0.000 K/mm3 (0.0-0.012); Nucleated Red Blood Cells Perc 0.0 % (0.0-0.2); Platelet Count Result 175 k/mm3 (150-375); Red Blood Count 4.58 M/mm3 (4.2-5.4); White Blood Count 9.3 K/mm3 (4.5-10.0)
[2025-05-13 08:45] LABS: INR 1.7; Prothrombin Time 19.9 Seconds (11.1-14.7)
[2025-05-13 08:53] LABS: Alanine Aminotransferase 16 U/L (6-35); Albumin Level 3.6 g/dL (3.5-5.1); Alkaline Phosphatase 147 U/L (38-126); Anion Gap 5 mmol/L (4-12); Aspartate Amino Transferase 23 U/L (14-36); Bilirubin,Total 0.4 mg/dL (0.2-1.3); Blood Urea Nitrogen 13 mg/dL (7-17); Calcium 8.9 mg/dL (8.4-10.2); Carbon Dioxide 25 mmol/L (22-30); Chloride 111 mmol/L (98-107); Estimated CRCL calculation 80 ml/min; Estimated Glomerular Filt Rate > 60; Glucose 113 mg/dL (65-110); Potassium 2.9 mmol/L (3.4-5.0); Sodium 141 mmol/L (137-145); Total Protein 6.4 g/dL (6.3-8.2)
[2025-05-13 09:16] VITALS: BP 119/60; PULSE 65; RESP 14; O2SAT 94
[2025-05-13] MEDS: POTASSIUM CHLORIDE 20 MEQ PACKET (FOR LIQUID) 40 MEQ PO (09:16)
[2025-05-13] MEDS: HYDROmorphone HCL INJ (*CRX) 1 MG/ML SYR 0.5 MG IV PUSH (09:16)
[2025-05-13] MEDS: CYCLOBENZAPRINE HCL 10 MG TABLET PO (10:00)
[2025-05-13] MEDS: Acetaminophen/HYDROcodone ELIXIR (*CRX) 7.5 MG/15 ML UDC PO (10:00)
[2025-05-13 10:01] VITALS: BP 119/60; PULSE 68; RESP 18; O2SAT 99
== END 2025-05-13 10:20 | disposition home or self-care (01) ==
PROVIDERS: Emergency Provider Student in an Organized Health Care Education/Training Program; PCP Pediatrics Neonatal-Perinatal Medicine
DX: S42.352A Displaced comminuted fracture of shaft of humerus, left arm, initial encounter for closed fracture (principal); S80.01XA Contusion of right knee, initial encounter; S93.402A Sprain of unspecified ligament of left ankle, initial encounter; E78.5 Hyperlipidemia, unspecified; I10 Essential (primary) hypertension; I25.10 Atherosclerotic heart disease of native coronary artery without angina pectoris; Z79.01 Long term (current) use of anticoagulants; W01.0XXA Fall on same level from slipping, tripping and stumbling without subsequent striking against object, initial encounter
CPT/HCPCS: 36415; 73060; 73562; 73610; 80053; 85025; 85610; 96374; 99284; A4565; A9270; J1171

== ENCOUNTER 2025-05-29 13:38 | Emergency (ER) | payer OTHER, SELFPAY ==
--- NOTE | ~2025-05-29 | XR_ITS ---
XR humerus LT 05/29/2025 14:49 Indication: Status post fall. Known fracture. Procedure: 2 views left humerus Comparison: 05/13/2025 Findings: There is a comminuted diaphyseal fracture of the left humerus with varus angulation. There is improved alignment compared with prior study. Surrounding osseous structures are unremarkable. Impression: 1: Improved alignment of displaced comminuted left humeral diaphyseal fracture with mild varus angulation. Reviewed, dictated and finalized at location O. Impression: 1: Improved alignment of displaced comminuted left humeral diaphyseal fracture with mild varus angulation.
--- NOTE | ~2025-05-29 | CT_ITS ---
EXAMINATION: CT brain wo deysi, 05/29/2025 16:10 CDT HISTORY: fall on thinners COMPARISON: No comparisons available. Technique: Axial images obtained of the brain without contrast. One or more of the following dose reduction techniques were used: automated exposure control, adjustment of the mA and/or kV according to patient size, use of iterative reconstruction technique. Findings: No acute infarct or parenchymal hemorrhage.Remote right cerebellar infarct No abnormal mass or mass effect. No midline shift. No extra-axial fluid collections. No hydrocephalus. Mastoid air cells unremarkable. Sinuses and orbits unremarkable. No acute fracture. No significant facial or scalp soft tissue swelling evident. No radiopaque foreign body is seen. Impression: 1.No acute intracranial abnormality. Reviewed, dictated and finalized at location A. Impression: 1.No acute intracranial abnormality.
--- NOTE | ~2025-05-29 | XR_ITS ---
XR forearm LT 2V 05/29/2025 14:50 Indication: Left arm pain after fall Procedure: Limited lateral view of the left forearm. The proximal aspect of the forearm is not completely included Comparison: No prior studies for comparison. Findings: . No gross fracture or malalignment. Moderate subcutaneous edema of the skin dorsal to the forearm. No foreign bodies. Impression: 1: Extremely limited study. Recommend repeat forearm series when the patient's condition permits. No gross fracture. Reviewed, dictated and finalized at location O. Impression: 1: Extremely limited study. Recommend repeat forearm series when the patient's condition permits. No gross fracture.
--- NOTE | ~2025-05-29 | CT_ITS ---
EXAMINATION: CT cervical spine wo con COMPARISON: None HISTORY: fall on thinners TECHNIQUE: Axial images were obtained through the spine without IV contrast. Coronal, sagittal reconstruction images were obtained from the axial views. CT scan performed using dose optimization techniques including the following automated exposure control; adjustment of mA and/or kV; use of iterative reconstruction technique. Automatic exposure control was used to reduce radiation dose. Permanent radiation dose record is archived to PACS. FINDINGS: The vertebral heights are intact. No fracture or subluxation. The disc heights are intact. Soft tissues there is a partially imaged aortic endovascular stent.2 the lung apices demonstrate emphysematous changes. Impression: No acute abnormality. Reviewed, dictated and finalized at location A. Impression: No acute abnormality.
[2025-05-29 13:46] VITALS: BP 94/67; PULSE 88; RESP 16; TEMP 36.6; O2SAT 96
--- NOTE | 2025-05-29 14:18 | ED.UPPEXIN ---
HPI - Extremity Injury (Upper) General Chief Complaint: Extremity Injury, Upper Stated Complaint: arm injury recheck post fall Time Seen by Provider: 05/29/25 14:07 History of Present Illness HPI narrative: This is a 55-year-old female with history of GERD, chest pain, chronic thoracic aortic dissection who presents to the ED for a fall and arm pain. Patient states she fell a couple weeks ago and was diagnosed with a humerus fracture. She has fallen multiple times since then at her fdc and has been seen at this facility a couple days ago for the same thing after hitting her head. She states that this morning, she fell out of her recliner again face 1st and hit her right head and her left arm had fallen out of it sling. She states she has new pain to her left arm. Related Data Home Medications ?Medication ?Instructions ?Recorded ?Confirmed ?Last Taken ?Type acetaminophen 325 mg chewable 650 mg PO Q4-6H PRN Mild Pain 07/06/21 03/07/25 Unknown History tablet (Scale Score 1-4) aspirin 81 mg tablet,delayed 81 mg PO DAILY 07/06/21 03/07/25 Unknown History release atorvastatin 80 mg tablet 80 mg PO DAILY 07/06/21 03/07/25 Unknown History cyclobenzaprine 10 mg tablet 10 mg PO DAILY 07/06/21 03/07/25 Unknown History docusate sodium 100 mg capsule 100 mg PO BID 07/06/21 03/07/25 Unknown History famotidine 20 mg tablet 20 mg PO QPM 07/06/21 03/07/25 Unknown History fludrocortisone 0.1 mg tablet 0.1 mg PO DAILY 07/06/21 03/07/25 Unknown History furosemide 20 mg tablet (Lasix) 20 mg PO EVERY OTHER DAY 07/06/21 03/07/25 07/06/21 08:00 History isosorbide mononitrate 60 mg 60 mg PO DAILY 07/06/21 03/07/25 Unknown History tablet,extended release 24 hr loratadine 10 mg capsule 10 mg PO DAILY 07/06/21 03/07/25 Unknown History mecobalamin (vitamin B12) 1,000 1,000 mcg PO DAILY 07/06/21 03/07/25 Unknown History mcg chewable tablet (B12 Active) metoprolol tartrate 25 mg tablet 6.25 mg PO DAILY 07/06/21 03/07/25 Unknown History multivitamin 1 tablet PO DAILY 07/06/21 03/07/25 Unknown History nitroglycerin 0.4 mg sublingual 0.4 mg sublingual Q5M PRN Chest 07/06/21 03/07/25 Unknown History tablet Pain nystatin 100,000 unit/gram topical 1 applic topical BID 07/06/21 03/07/25 Unknown History powder (Nystop) polyethylene glycol 3350 17 17 g PO DAILY PRN Constipation 07/06/21 03/07/25 Unknown History gram/dose oral powder potassium chloride 20 mEq 20 meq PO DAILY 07/06/21 03/07/25 Unknown History tablet,extended release(part/cryst) risperidone 0.5 mg tablet 0.5 mg PO BID 07/06/21 03/07/25 Unknown History topiramate 25 mg tablet 50 mg PO DAILY 07/06/21 03/07/25 Unknown History trazodone 100 mg tablet 100 mg PO DAILY 07/06/21 03/07/25 Unknown History cholecalciferol (vitamin D3) 1,250 1,250 mcg PO WEEKLY 03/07/25 03/07/25 Unknown History mcg (50,000 unit) capsule cyanocobalamin (vitamin B-12) 100 100 mcg PO DAILY 03/07/25 03/07/25 Unknown History mcg tablet diphenhydramine HCl 25 mg capsule 50 mg PO HS 03/07/25 03/07/25 Unknown History (Allergy (diphenhydramine)) eszopiclone 1 mg tablet 1 mg PO HS 03/07/25 03/07/25 Unknown History fluticasone propionate 50 1 spray intranasal Q12H 03/07/25 03/07/25 Unknown History mcg/actuation nasal spray,suspension guaifenesin 600 mg PO BID 03/07/25 03/07/25 Unknown History isosorbide mononitrate 120 mg 120 mg PO DAILY 03/07/25 03/07/25 Unknown History tablet,extended release 24 hr lidocaine 5 % topical patch 1 patch topical Q24H 03/07/25 03/07/25 Unknown History meloxicam 7.5 mg tablet 7.5 mg PO DAILY PRN pain 03/07/25 03/07/25 Unknown History nystatin 100,000 unit/gram topical 1 applic topical QID 03/07/25 03/07/25 Unknown History cream promethazine 12.5 mg tablet 12.5 mg PO Q4H PRN nausea and 03/07/25 03/07/25 Unknown History vomiting quetiapine 100 mg tablet 100 mg PO HS 03/07/25 03/07/25 Unknown History ropinirole 0.5 mg tablet 0.5 mg PO HS 03/07/25 03/07/25 Unknown History temazepam 15 mg capsule 15 mg PO HS 03/07/25 03/07/25 Unknown History topiramate 50 mg tablet 75 mg PO HS 03/07/25 03/07/25 Unknown History tramadol 50 mg tablet 50 mg PO Q8H PRN pain 03/07/25 03/07/25 Unknown History triamcinolone acetonide 0.1 % 1 applic topical TID 03/07/25 03/07/25 Unknown History topical cream warfarin 5 mg tablet 5 mg PO QPM 03/07/25 03/07/25 Unknown History Allergies Allergy/AdvReac Type Severity Reaction Status Date / Time hydromorphone (From Dilaudid) Allergy Severe Hallucinati Verified 05/29/25 16:29 ng NSAIDS (Non-Steroidal Allergy Mild Unknown Verified 05/29/25 16:29 Anti-Inflamma morphine Allergy Unknown Verified 05/29/25 16:29 oxycodone (From Percocet) Allergy Unknown Verified 05/29/25 16:29 sumatriptan (From Imitrex) Allergy Unknown Verified 05/29/25 16:29 Review of Systems Review of Systems: Gen.: Denies fevers or chills Eyes: Denies eye pain or visual change ENT: Denies congestion Respiratory: Denies shortness of breath or cough CV: Denies chest pain or palpitations GI: Denies abdominal pain nausea, emesis or diarrhea denies burning, urgency, frequency or hematuria Musculoskeletal: As per HPI Neuro: Denies numbness, tingling, weakness or focal weakness Skin: Denies rash Except as documented, all other systems reviewed and negative [facility] Past Medical History Medical History Aortic dissection Hyperlipidemia Hypertension History of coronary artery disease Surgical History Surgical History History of percutaneous coronary intervention History of coronary artery bypass graft H/O repair of dissecting aneurysm of ascending thoracic aorta Family History Family History Grandparent Carcinoma of colon Colon cancer Other Unknown family medical history Social History Social History Smoking status: Current every day smoker Tobacco type: cigarettes Alcohol intake: never Substance use: former Living arrangements: fdc Spiritual care concerns: No Exam Narrative: APPEARANCE: No acute distress, nontoxic, resting in bed EYES: EOMI HEENT: Normocephalic, atraumatic, OMM RESPIRATORY: No respiratory distress Clear to auscultation bilaterally with no rhonchi wheezing or rales. CARDIOVASCULAR: Regular rate and rhythm without murmurs rubs or gallops. ABDOMINAL: Soft, nontender, nondistended, no rebound or guarding MUSCULOSKELETAl: Left upper extremity in immobilizer. Tenderness to palpation over the midshaft left humerus, tenderness to palpation over the proximal left forearm. Scattered ecchymosis over the forearm and hand. NEURO: Awake and alert. Following commands, speech normal, no focal deficits SKIN:: Warm, dry. No rashes lesions or abrasions PSYCHIATRIC: Normal affect/mood, Course Vital Signs Vital signs: Vital Signs Temperature 97.8 F 05/29/25 13:46 Pulse Rate 88 05/29/25 13:46 Respiratory Rate 16 05/29/25 13:46 Blood Pressure 94/67 L 05/29/25 13:46 Pulse Oximetry 96 05/29/25 13:46 Oxygen Delivery Room Air 05/29/25 13:46 Temperature 98.1 F 05/29/25 17:36 Pulse Rate 76 05/29/25 17:36 Respiratory Rate 16 05/29/25 17:36 Blood Pressure 137/76 05/29/25 17:36 Pulse Oximetry 98 05/29/25 17:36 Oxygen Delivery Room Air 05/29/25 13:46 MDM - Extremity Injury (Upper) MDM Narrative Medical decision making narrative: 55-year-old female that presented to the ED for fall with headache and left arm pain. On initial evaluation, patient was in no acute distress, afebrile, hemodynamically stable. X-ray left humerus showed improved alignment of the fracture. Patient was adamantly refusing CT head and C-spine due to concerns for pain and unable to lay down for a scan. After further discussion, patient was given IV call or and Versed and she was able tolerate CT scan. CT head and C-spine showed no acute process. Patient's pain was improved and she was comfortable going home at this time. Patient was agreeable to this plan. Given strict return precautions. Differential Diagnosis Differential diagnosis: Likely sprain and strain of wrist, fracture of wrist, dislocation of shoulder, fracture of humerus and fracture of clavicle Medical Records Attestation: I reviewed the patient's medical records. Imaging Data Attestation: I personally reviewed and interpreted this imaging study as follows: (I reviewed the radiologist's interpretations) Radiologist's impression: Impressions Humerus X-Ray 05/29/25 14:54 Impression: 1: Improved alignment of displaced comminuted left humeral diaphyseal fracture with mild varus angulation. Forearm X-Ray 05/29/25 15:14 Impression: 1: Extremely limited study. Recommend repeat forearm series when the patient's condition permits. No gross fracture. Head CT 05/29/25 16:26 Impression: 1.No acute intracranial abnormality. Cervical Spine CT 05/29/25 16:29 Impression: No acute abnormality. Discharge Plan Discharge Clinical Impression: Fracture, humerus closed Qualifiers: Encounter type: subsequent encounter Humerus Location: shaft Fracture morphology: unspecified fracture morphology Laterality: left Fracture healing: with routine healing Qualified Code(s): S42.302D - Unspecified fracture of shaft of humerus, left arm, subsequent encounter for fracture with routine healing Fall Qualifiers: Encounter type: initial encounter Qualified Code(s): W19.XXXA - Unspecified fall, initial encounter CHI (closed head injury) Qualifiers: Encounter type: initial encounter Qualified Code(s): S09.90XA - Unspecified injury of head, initial encounter Patient Disposition: Home Condition: Stable Instructions: Antibiotic Form Additional Instructions: Your humerus fracture looked more appropriately aligned. Continue follow-up with Orthopedic surgery as scheduled. Return the ED for any new or worsening symptoms. Patient Language: Bulgarian Prescriptions: No Action omeprazole 40 mg capsule,delayed release(DR/EC) 40 mg PO DAILY Qty: 30 3RF dicyclomine 10 mg capsule 10 mg PO QID PRN (Reason: abdominal pain and/or diarrhea) Qty: 120 3RF cyclobenzaprine 10 mg tablet 10 mg PO DAILY atorvastatin 80 mg Tablet 80 mg PO DAILY topiramate 25 mg Tablet 50 mg PO DAILY isosorbide mononitrate 60 mg tablet extended release 24 hr 60 mg PO DAILY famotidine 20 mg tablet 20 mg PO QPM trazodone 100 mg tablet 100 mg PO DAILY docusate sodium 100 mg capsule 100 mg PO BID furosemide [Lasix] 20 mg Tablet 20 mg PO EVERY OTHER DAY fludrocortisone 0.1 mg Tablet 0.1 mg PO DAILY risperidone 0.5 mg tablet 0.5 mg PO BID metoprolol tartrate 25 mg tablet 6.25 mg PO DAILY loratadine 10 mg Capsule 10 mg PO DAILY multivitamin Tablet 1 tablet PO DAILY aspirin 81 mg Tablet,Delayed Release (Dr/Ec) 81 mg PO DAILY potassium chloride 20 mEq tablet,ER particles/crystals 20 meq PO DAILY nitroglycerin 0.4 mg tablet, sublingual 0.4 mg sublingual Q5M PRN (Reason: Chest Pain) nystatin [Nystop] 100,000 unit/gram powder 1 applic TOPICAL BID Rx Instructions: abd skin folds polyethylene glycol 3350 17 gram/dose powder 17 g PO DAILY PRN (Reason: Constipation) mecobalamin (vitamin B12) [B12 Active] 1,000 mcg Tablet,Chewable 1,000 mcg PO DAILY acetaminophen 325 mg Tablet,Chewable 650 mg PO Q4-6H PRN (Reason: Mild Pain (Scale Score 1-4)) warfarin 6 mg tablet 6 mg PO HS Qty: 30 0RF cyanocobalamin (vitamin B-12) 100 mcg tablet 100 mcg PO DAILY guaifenesin [Mucinex] 600 mg PO BID fluticasone propionate 50 mcg/actuation spray,suspension 1 spray INTRANASAL Q12H isosorbide mononitrate 120 mg tablet extended release 24 hr 120 mg PO DAILY lidocaine 5 % adhesive patch,medicated 1 patch topical Q24H Patient Comments: 12 HOURS OFF nystatin 100,000 unit/gram cream 1 applic TOPICAL QID Patient Comments: Q SHIFT eszopiclone 1 mg tablet 1 mg PO HS warfarin 5 mg tablet 5 mg PO QPM topiramate 50 mg tablet 75 mg PO HS temazepam 15 mg capsule 15 mg PO HS ropinirole 0.5 mg tablet 0.5 mg PO HS diphenhydramine HCl [Allergy (diphenhydramine)] 25 mg capsule 50 mg PO HS quetiapine 100 mg tablet 100 mg PO HS triamcinolone acetonide 0.1 % cream 1 applic TOPICAL TID Patient Comments: LEFT ELBOW Q SHIFT ECZEMA tramadol 50 mg tablet 50 mg PO Q8H PRN (Reason: pain) meloxicam 7.5 mg tablet 7.5 mg PO DAILY PRN (Reason: pain) promethazine 12.5 mg tablet 12.5 mg PO Q4H PRN (Reason: nausea and vomiting) cholecalciferol (vitamin D3) 1,250 mcg (50,000 unit) capsule 1,250 mcg PO WEEKLY hydrocodone-acetaminophen 10-300 mg tablet 1 tablet PO Q8H PRN (Reason: pain) Qty: 12 0RF cyclobenzaprine 10 mg tablet 10 mg PO Q8H Qty: 30 0RF Follow-up/Referrals: Heather,Zoran Ho MD [Primary Care Provider, Pediatric Emergency Medicine]
--- NOTE | 2025-05-29 14:36 | PC.NURSE ---
pt not currently in room to give medication.
[2025-05-29] MEDS: oxyCODONE/ACETAMINOPHEN (*CRX) 10-325 MG TABLET 1 TAB PO (14:49)
--- OUTSIDE RECORDS SUMMARY | 2025-05-29 15:58 | XMS_ITS | Encounter Summary ---
Author Organization [facility] Address [address] [place] [address] Phone Care Team Providers Care Radio Script Writer Name Role Phone Tameka Clark MD Primary Care Provider [phone] Encounter Details Date Type Department Care Team [...] documented as of this encounter Care Teams Radio Script Writer Relationship Specialty Start Date End Date Tameka Clark MD [address] [address] PCP - General 03/19/17 documented as of this encounter
--- OUTSIDE RECORDS SUMMARY | 2025-05-29 15:58 | XMS_ITS | Clinical Summary ---
Author Organization [facility] Address [address] [place] [address] Care Team Providers Care Supervisor Kosher Dietary Service Name Role Phone Tameka Clark MD Primary Care Provider [phone] Allergies Active Allergy Reactions Criticality Noted Date [...] by mouth daily Active cholecalciferol (VITAMIN D-3) 72296 unit tablet Take 50,000 Units by mouth [...] artery disease of n ative artery of [place] heart with stable angina pectoris 06/27/2022 Tobacco [...] (02/09/2021): Added automatically from request for surgery [id number] Assessment & Plan (03/01/2021 6:04 AM CDT): [...] Comments Blood Pressure 108/60 08/25/2022 1:30 PM WINDOW MAKER Pulse 65 08/25/2022 1:30 PM WINDOW MAKER Temperature 36.2 C (97.2 F) 10/06/2021 8:00 AM WINDOW MAKER Respiratory Rate 16 03/01/2021 11:45 AM CDT Oxygen Saturation 94% 06/27/2022 3:39 PM CDT Inhaled Oxygen Concentration - - Weight 87.1 kg (192 lb) 08/25/2022 1:30 PM WINDOW MAKER Height 162.6 cm (5' 4) 08/25/2022 1:30 PM WINDOW MAKER Body Mass Index 32.96 08/25/2022 1:30 PM WINDOW MAKER Plan of Treatment Health Maintenance Due Date [...] of 2) 2021 Covid-19 Vaccine (2 - 2024-2 6 season) 2025 07/23/2021 Influenza Vaccine (#1) 2025 7, 07/28/2015, 11/14/2014, Additional history exists Medical Devices Implanted Type Area Manufacturing Teacher Device Identifier Shelf Expiration Date Model / Serial / Lot [employer] [id number] Zenith Alpha Flexor Captor 28mm 24-25mm 16fr 109mm 2 Piece - [id number] Implanted:Qty: 1 on 02/23/2021 by Quang Corrigan MD PhD at [facility] Endoprosthesis Aorta [employer] 11/23/2021 [id number] / / [id number] [employer] [id number] Zenith 36mm 20-30mm 16mm 180mm 9 Dissection Introducer Sheath - [id number] Implanted:Qty: 1 on 02/23/2021 by Quang Corrgian MD PhD at [facility] Stent Aorta [employer] 11/04/2023 [id number] / / [id number] Insurance [facility] Advance Directives For more information, please contact: [phone] * Full Code (Latest Code Status on File) Date Activated Date Inactivated Comments 02/23/2021 5:22 PM 03/01/2021 9:14 PM Care Teams Supervisor Kosher Dietary Service Relationship Specialty [place] [address] [place] [id number] PCP - General 03/19/17
--- OUTSIDE RECORDS SUMMARY | 2025-05-29 15:58 | XMS_ITS | Encounter Summary ---
Author Organization [facility] Address [address] [place] [address] Phone Care Team Providers Care Security Police Name Role Phone Tameka Clark MD Primary Care Provider [phone] Encounter Details Date Type Department Care Team [...] documented as of this encounter Care Teams Security Police Relationship Specialty Start Date End Date Tameka Clark MD [address] [facility] [address] [place] [address] PCP - General 03/19/17 documented as of this encounter
--- OUTSIDE RECORDS SUMMARY | 2025-05-29 15:58 | XMS_ITS | Clinical Summary ---
Author Organization 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
--- OUTSIDE RECORDS SUMMARY | 2025-05-29 15:58 | XMS_ITS | Encounter Summary ---
Author Organization [facility] Address [address] 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 INR = 2.5-3.5: Mechanical heart valve Critical value for INR is >/= 4.5 Blood No Phlebotomy Charged / Unknown 01/03/2025 7:30 PM CDT 01/03/2025 7:30 PM CDT us Cem Romero MD HEMATOLOGY ORDERABLES Final Resu lt [facility] [address] [place] [address] documented in this encounter Visit Diagnoses Not on filedocumented in this encounter
--- OUTSIDE RECORDS SUMMARY | 2025-05-29 15:58 | XMS_ITS | Encounter Summary ---
Author Organization [facility] Address [address] [place] [address] Phone Care Team Providers Care Clinical Social Work Aide Name Role Phone Unavailable Primary Care Provider Unavailabl e Encounter Details Date Type Department Care Team (Late st Contact Info) Description 01/13/2025 Lab Requisition [facility] [address] [place] [id number] Jonathan Mcclain MD [address] [place] [address] Social History Tobacco Use Types Packs/Day Years Used Date Smoking Tobacco: Never Assessed Comments Unknown Sex and Gender Information Value Date Recorded Sex Assigned at Not on file Legal Sex Female 3:07 AM UTILITY TECH Gender Identity Not on file Sexual Orientation [...] - 14.8 sec 01/13/2025 9:10 PM CDT [facility] INR 4.0(H) 0.9 - 1.2 01/13/2025 9:10 PM CDT [facility] Comment: Therapeutic Ranges INR = 2.0-3.0: Venous thromb, atrial fib, pul embolism, tissue heart valve, ami. INR = 2.5-3.5: Mechanical heart valve Critical value for INR is >/= 4.5 Blood No Phlebotomy Charged / Unknown 01/13/2025 4:40 PM CDT 01/13/2025 8:47 PM CDT us Jonathan Mcclain MD HEMATOLOGY ORDERABLES Samanta vitale Result [facility] [place] [address] documented in this encounter Visit Diagnoses Not on filedocumented in this encounter
[2025-05-29] MEDS: diazePAM INJ (*CRX) 10 MG/2 ML SYRINGE 5 MG IV PUSH (16:20)
--- NOTE | 2025-05-29 16:40 | PC.NURSE ---
ever care updated on pt status
[2025-05-29 17:36] VITALS: BP 137/76; PULSE 76; RESP 16; TEMP 36.7; O2SAT 98
== END 2025-05-29 19:19 | disposition home or self-care (01) ==
PROVIDERS: Emergency Provider Student in an Organized Health Care Education/Training Program; PCP Pediatrics Neonatal-Perinatal Medicine
DX: S42.302D Unspecified fracture of shaft of humerus, left arm, subsequent encounter for fracture with routine healing (principal); S09.90XD Unspecified injury of head, subsequent encounter; I10 Essential (primary) hypertension; I25.10 Atherosclerotic heart disease of native coronary artery without angina pectoris; F17.210 Nicotine dependence, cigarettes, uncomplicated; W19.XXXD Unspecified fall, subsequent encounter
CPT/HCPCS: 70450; 72125; 73060; 73090; 96374; 99285; A9270; J3360